=== PATIENT | female | born 1990 | race Caucasian/White ===

== ENCOUNTER 2023-06-17 08:47 | Outpatient (OUT) | payer OTHER, SELFPAY ==
--- NOTE | 2023-06-17 09:00 | XR_ITS ---
The [address] [address] Patient Name: TORITO BENÍTEZ MRN: [facility]:[id number] date: 1990 Sex: F Assigned Patient Location: LAB Current Patient Location: LAB Accession/Order Number: [id number] Exam Date: 06/17/2023 09:15 Report Date: 06/17/2023 19:37 At the request of: KING RAMÍREZ Procedure: XR cervical spine 5V Exam: Radiographs: XR cervical spine 5V Reason for exam: Cervicalgia M54.2, Headache R51.9 Comparison: None XR/XR cervical spine 5V IMPRESSION: No radiographically evident cervical spine fractures or malalignment. Preserved intervertebral disc heights. Remainder of of the cervical spine radiographs is unremarkable. Electronically authenticated by: CHRISTINE MENDEZ Date: 06/17/2023 19:37
[2023-06-17 10:14] LABS: Basophils Percent Auto 0.5 % (0.2-2.0); Eosinophils Absolute Auto 0.1 10^3/uL (0.0-0.7); Eosinophils Percent Auto 1.4 % (0.9-7.0); Hematocrit 38.6 % (36.0-48.0); Hemoglobin 12.6 g/dL (12.0-16.0); Immature Granulocytes Abs Auto 0.01 10^3/uL (0.00-0.03); Immature Granulocytes Pct Auto 0.2 % (0.0-0.5); Lymphocytes Absolute Auto 1.7 10^3/uL (1.2-3.8); Lymphocytes Percent Auto 28.5 % (20.5-60.0); Mean Corpuscular HGB Conc 32.6 g/dL (29.9-35.2); Mean Corpuscular Hemoglobin 27.9 pg (26.7-34.0); Mean Corpuscular Volume 85.6 fL (81.0-99.0); Mean Platelet Volume 10.4 fL (9.5-13.5); Monocytes Absolute Auto 0.4 10^3/uL (0.3-0.8); Monocytes Percent Auto 6.9 % (1.7-12.0); Neutrophils Absolute Auto 3.6 10^3/uL (1.4-6.5); Neutrophils Percent Auto 62.5 % (43.0-75.0); Platelet Count 273 10^3/uL (150-450); Red Blood Count 4.51 10^6/uL (4.20-5.40); White Blood Count 5.8 10^3/uL (4.0-11.0)
[2023-06-17 10:21] LABS: Alanine Aminotransferase 20 U/L (14-59); Albumin Globulin Ratio 0.8; Albumin Level 3.8 g/dL (3.4-5.0); Alkaline Phosphatase 92 U/L (46-116); Anion Gap 12.8; Aspartate Amino Transferase 14 U/L (15-37); Bilirubin Total 0.4 mg/dL (0.2-1.0); Calcium 9.2 mg/dL (8.5-10.1); Carbon Dioxide 27.4 mmol/L (21.0-32.0); Chloride 103 mmol/L (98-107); Estimated GFR (African America >60 (>=60); Estimated GFR (Non-African Ame >60 (>=60); Globulin 4.5 g/dL; Glucose 100 mg/dL (74-106); HDL Cholesterol 43 mg/dL (40-60); Potassium 4.2 mmol/L (3.5-5.1); Sodium 139 mmol/L (136-145); Total Protein 8.3 g/dL (6.4-8.2); Triglycerides 136 mg/dL (<=150); VLDL CHOLESTEROL 27.2 mg/dL
[2023-06-17 10:42] LABS: Cholesterol 228 mg/dL (<=200)
[2023-06-17 14:23] LABS: Chol HDL Ratio 5.3
== END 2023-06-17 08:48 | disposition home or self-care (01) ==
LOC: LAB 08:53
PROVIDERS: PCP Nurse Practitioner Family; Visit Provider Nurse Practitioner Family
DX: Z00.00 Encounter for general adult medical examination without abnormal findings (principal); Z13.228 Encounter for screening for other metabolic disorders; Z13.0 Encounter for screening for diseases of the blood and blood-forming organs and certain disorders involving the immune mechanism; Z13.220 Encounter for screening for lipoid disorders; M54.2 Cervicalgia; R51.9 Headache, unspecified
CPT/HCPCS: 36415; 72050; 80053; 80061; 85025

== ENCOUNTER 2023-12-27 11:43 | Emergency (ER) | payer OTHER, SELFPAY ==
[2023-12-27 11:45] VITALS: BP 167/82; PULSE 71; TEMP 36.7; O2SAT 98
[2023-12-27 11:49] VITALS: O2SAT 98
--- NOTE | 2023-12-27 11:58 | ED.GENADUL1 ---
HPI HPI - General Adult General Chief complaint: Skin/Abscess/Foreign Body Stated complaint: rash Time Seen by Provider: 12/27/23 11:48 Source: patient Mode of arrival: walk-in Limitations: no limitations History of Present Illness HPI narrative: The patient coming to the ER with 3 days history of rash on her upper extremities as well as the face, the patient has been trying Benadryl cream with no effect, she denies any exposure to any new material but she did mention that her significant other also had similar rash that resolved No new environmental changes or any new food or medication Related Data Previous Rx's ?Medication ?Instructions ?Recorded famotidine 20 mg tablet (Pepcid) 20 mg PO BID #10 tabs 12/27/23 prednisone 20 mg tablet 40 mg (2 x 20 mg) PO DAILY 5 days 12/27/23 #10 tabs Allergies Allergy/AdvReac Type Severity Reaction Status Date / Time No Known Drug Allergies Allergy Verified 12/27/23 11:45 Opioid HPI Opioid Management Most Recent Opioid Data: No Data to Display Review of Systems ROS Status of ROS 10 or more systems reviewed and unremarkable except as noted in history and below Exam Narrative Exam Narrative: Nurses notes and vital signs reviewed and patient is not hypoxic. General: Well-appearing and in no apparent distress. Skin: Warm, dry, no pallor noted. No rash. Head: Normocephalic, atraumatic. Neck: Supple, non-tender. Eye: Pupils are equal, round and EOMI. No scleral icterus. Ears, Nose, Mouth, and Throat: TM are clear, no nasal mucosal hypertrophy. Oral mucosa is moist, no posterior oropharynx erythema, uvula is mid-line Cardiovascular: Regular Rate and Rhythm without murmur, gallop or rub. Respiratory: No accessory muscle use or respiratory distress. Lungs are clear to auscultation, no wheezing, rales or rhonchi Chest Wall: no tenderness Back: No midline thoracic or lumbar vertebral tenderness. No CVA tenderness Musculoskeletal: normal ROM, no calf or popliteal tenderness, no lower extremity edema/swelling GI: Abdomen is soft, non-distended. Normal bowel sounds. No masses appreciated. No tenderness to palpation. No rebound, guarding, or rigidity noted. Neurological: A&O x4. No cranial nerve dysfunction observed. No truncal ataxia. Moves all extremities. Sensation intact. Psychiatric: Cooperative and interactive. Normal mood and affect. Skin examination The patient have a maculopapular rash dry on the anterior of the elbow bilaterally in addition to the face and front of the neck, the rash is dry and fine and no signs of infection Constitutional Vital Signs, click to edit/add: Last Vital Signs Temp 98.0 F 12/27/23 11:45 Pulse 71 12/27/23 11:45 Resp 17 12/27/23 11:45 BP 167/82 H 12/27/23 11:45 Pulse Ox 98 12/27/23 11:49 O2 Del Method Room Air 12/27/23 11:49 Course Vital Signs Vital signs: Vital Signs Temperature 98.0 F 12/27/23 11:45 Pulse Rate 71 12/27/23 11:45 Respiratory Rate 17 12/27/23 11:45 Blood Pressure 167/82 H 12/27/23 11:45 Pulse Oximetry 98 12/27/23 11:45 Oxygen Delivery Method Room Air 12/27/23 11:45 Temperature 98.0 F 12/27/23 11:45 Pulse Rate 71 12/27/23 11:45 Respiratory Rate 17 12/27/23 11:45 Blood Pressure 167/82 H 12/27/23 11:45 Pulse Oximetry 98 12/27/23 11:49 Oxygen Delivery Method Room Air 12/27/23 11:49 Medical Decision Making [facility] Narrative Medical decision making narrative: The patient right now is presenting with a possible contact dermatitis with no trigger She will be treated with prednisone as well as Pepcid and she was instructed to use some Benadryl p.o. to help improvement The patient is to follow up with primary care physician in next 2-3 days or to return to the emergency department should any of the signs or symptoms worsen or new symptoms develop. The patient agrees with the following Diagnosis and Treatment plan and the patient will be discharged home. Discharge Plan Discharge Stand Alone Forms: Portal Instructions Chief Complaint: Skin/Abscess/Foreign Body Clinical Impression: Contact dermatitis Qualifiers: Contact dermatitis type: unspecified Contact dermatitis trigger: unspecified trigger Qualified Code(s): L25.9 - Unspecified contact dermatitis, unspecified cause Patient Disposition: Home, Self-Care Time of Disposition Decision: 11:57 Condition: Good Prescriptions / Home Meds: New famotidine [Pepcid] 20 mg tablet 20 mg PO BID Qty: 10 0RF prednisone 20 mg tablet 40 mg PO DAILY 5 Days Qty: 10 0RF Print Language: Macedonian Instructions: Contact Dermatitis (DC) Referrals: KING RAMÍREZ [Primary Care Provider] - 1 week
[2023-12-27] MEDS: PREDNISONE 20 MG TABLET 40 MG PO (12:01)
[2023-12-27] MEDS: FAMOTIDINE 20 MG TABLET PO (12:01)
--- OUTSIDE RECORDS SUMMARY | 2023-12-27 12:05 | XMS_ITS | CCD ---
Author Organization [facility] Care Team Providers Care Psychology Fellow Name Role Phone GENET SNYDER Primary Care Physician [phone] [place] PRE PLANNING ADVISOR - Genet MCGARRY Primary Care Provider GURPREET العراقي Referring Unavailable GENET SNYDER Primary Care Unavailable GURPREET العراقي Referring Unavailable GENET SNYDER Primary Care Unavailable GENET SNYDER Primary Care Unavailable GURPREET العراقي Admitting Unavailable GURPREET العراقي Attending Unavailable Penny Williamson Attending Unavailable Shola Newton Attending Unavailable Ninoska Kirby Attending Unavailable Bucky Owens Attending Unavailable Brigid To Unavailable Allergies Allergy Classification Reported Allergen(s) Allergy Type Date of Onset Reaction(s) Facility (1 source) No Known Medication Allergies; Translations: [No Known Medication Allergies] Propensity to adverse reactions (disorder) [facility] Repository Medications Current Medications Medication Drug Class(es) Dates Sig (Normalized) Sig (Original) amoxicillin 875 mg oral tablet (1 source) Penicillin-class Antibacterial Start: 02-15-2023 End: 02-22-2023 take 1 tablet by mouth twice daily amoxicillin 875 mg Tab 875 mg = 1 tab(s), Oral, BID, X 7 day(s), # 14 tab(s), Refills(s) 0, Pharmacy: [facility]/pharmacy #[id number], 170, cm, 02/15/23 20:06:00 EDT, Height/Length Dosing, 106.6, kg, 02/15/23 20:06:00 EDT, Weight Dosing Start Date: 02/15/23 Stop Date: 02/22/23 Status: Ordered calcium chloride 0.0014 meq/ml / potassium chloride 0.004 meq/ml / sodium chloride 0.103 meq/ml / sodium lactate 0.028 meq/ml injectable solution (1 source) Start: 01-30-2022 lactated ringers infusion cyclobenzaprine hydrochloride 10 mg oral tablet (4 sources) Muscle Relaxant Start: 11-05-2023 take 10 mg by mouth once daily at bedtime Cyclobenzaprine Active 10 MG PO Daily at bedtime November 05, 2023 12:00am Start: 06-17-2023 Cyclobenzaprin e HCl 10 MG 1 tablet as needed Orally Three a day for 30 days Jun, Active Flexeril 10mg 1 Oral 3 times daily Active {21 (Desogestrel 0.15 MG / Ethinyl Estradiol 0.03 MG Oral Tablet) / 7 (Inert Ingredients 1 MG Oral Tablet) } Pack [Isibloom 28 Day] (2 sources) Progestin, Estrogen Start: 12-12-2019 Isibloom 0.15 mg-0.03 mg oral tablet Refill(s) 0 Start Date: 12/12/19 Status: Ordered diphenhydrAMINE hydrochloride 25 mg oral capsule (1 source) Histamine-1 Receptor Antagonist Start: 11-18-2021 End: 11-21-2021 take 1 capsule by mouth three times daily as needed for nausea diphenhydrAMINE 25 mg Cap 25 mg = 1 cap(s), Oral, TID, PRN as needed for nausea/vomiting, X 3 day(s), # 10 cap(s), Refills(s) 0, Pharmacy: [facility], 170, cm, 11/18/21 16:11:00 EDT, Height/Length Dosing, 90, kg, 11/18/21 16:11:00 EDT, Weight Dosing Start Date: 11/18/21 Stop Date: 11/21/21 Status: Ordered Drospirenone-Ethinyl Estradiol (1 source) Progestin, Estrogen Start: 11-05-2023 Drospirenone-Ethinyl Estradiol (Loryna (28)) 3-0.02 mg tablet Active 1 TAB PO Daily November 05, 2023 12:00am escitalopram 10 mg oral tablet (8 sources) Serotonin Reuptake Inhibitor Start: 11-05-2023 take 1 tablet by mouth once daily Escitalopram Oxalate (Lexapro) 10 mg tablet Active 10 MG PO Daily November 05, 2023 12:00am Start: 12-11-2021 take 1 tablet by philip th once daily escitalopram (LEXAPRO) 20 MG tablet Indications: Anxiety , Depression, unspecified depression type Take 1 tablet by mouth daily 30 tablet 5 12/11/2021 Active Start: 12-12-2019 take 1 tablet by philip th once daily escitalopram 10 mg Tab TAKE 1 TABLET BY MOUTH ONCE DAILY Start Date: 12/12/19 Status: Ordered ibuprofen 800 mg oral tablet (1 source) Nonsteroidal Anti-inflammatory Drug Start: 08-26-2022 End: 09-05-2022 take 1 tablet by mouth every eight hours as needed for pain ibuprofen 800 mg Tab 800 mg = 1 tab(s), Oral, q8hr, PRN Pain/Fever, X 10 day(s), # 30 tab(s), Refills(s) 0, Pharmacy: [facility], 169, cm, 08/26/22 11:30:00 EST, Height/Length Dosing, 108.7, kg, 08/26/22 11:30:00 EST, Weight Dosing Start Date: 08/26/22 Stop Date: 09/05/22 Status: Ordered Isibloom 0.15 mg-0.03 mg oral tablet (1 source) Start: 12-12-2019 Isibloom 0.15 mg-0.03 mg oral tablet Refill(s) 0 Start Date: 12/12/19 Status: Ordered Lidocaine 2% Viscous (1 source) Start: 08-26-2022 End: 09-10-2022 Lidocaine 2% Viscous See Instructions, 100 mL, Refill(s) 0, Apply topically with cotton tip applicator to painful area., [facility], 169, cm, 08/26/22 11:30:00 EST, Height/Length Dosing, 108.7, kg, 08/26/22 11:30:00 EST, Weight Dosing Start Date: 08/26/22 Stop Date: 09/10/22 Status: Ordered metoclopramide 10 mg oral tablet (1 source) Dopamine-2 Receptor Antagonist Start: 11-18-2021 End: 11-23-2021 take 1 tablet by mouth four times daily as needed for headache Reglan 10 mg Tab 10 mg = 1 tab(s), Oral, QID, PRN Headache, X 5 day(s), # 20 tab(s), Refills(s) 0, Pharmacy: [facility], 170, cm, 11/18/21 16:11:00 EDT, Height/Length Dosing, 90, kg, 11/18/21 16:11:00 EDT, Weight Dosing Start Date: 11/18/21 Stop Date: 11/23/21 Status: Ordered penicillin v potassium 500 mg oral tablet (1 source) Start: 08-26-2022 End: 09-02-2022 take 1 tablet by mouth every six hours penicillin V potassium 500 mg Tab 500 mg = 1 tab(s), Oral, q6hr, X 7 day(s), # 28 tab(s), Refills(s) 0, Pharmacy: [facility], 169, cm, 08/26/22 11:30:00 EST, Height/Length Dosing, 108.7, kg, 08/26/22 11:30:00 EST, Weight Dosing Start Date: 08/26/22 Stop Date: 09/02/22 Status: Ordered Completed/Discontinued Medications Medication Drug Class(es) Dates Sig (Normalized) Sig (Original) 1 ml ketorolac tromethamine 30 mg/ml cartridge (3 sources) Nonsteroidal Anti-inflammatory Drug, Cyclooxygenase Inhibitor Start: 01-30-2022 End: 01-30-2022 ketorolac (TORADOL) injection 30 mg Start: 11-18-2021 End: 11-23-2021 take 1 tablet by mouth four times daily as needed for pain ketorolac 10 mg Tab 10 mg = 1 tab(s), Oral, QID, PRN for pain, X 5 day(s), # 20 tab(s), Refills(s) 0, Pharmacy: [facility], 170, cm, 11/18/21 16:11:00 EDT, Height/Length Dosing, 90, kg, 11/18/21 16:11:00 EDT, Weight Dosing Start Date: 11/18/21 Stop Date: 11/23/21 Status: Ordered take 1 tablet by philip th every six hours as needed for pain ketorolac (TORADOL) 10 MG tablet Take 10 mg by mouth every 6 hours as needed for Pain 0 Active 1 ml methylergonovine maleate 0.2 mg/ml injection (1 source) Ergot Derivative Start: 01-30-2022 End: 01-30-2022 methylergonovine (METHERGINE) injection 200 mcg Problems Active Problems Problem Classification Problem Date Documented Date Episodic/Chronic Anxiety disorders (7 sources) Anxiety; Translations: [Anxiety disorder, unspecified] 12-12-2019 Chronic Disorders of teeth and jaw (2 sources) Periapical abscess; Translations: [Periapical abscess without sinus] Onset: 08-26-2022 Episodic Essential hypertension (1 source) Essential hypertension; Translations: [Essential (primary) hypertension] Onset: 11-18-2021 Chronic Headache; including migraine (4 sources) Headache; Translations: [Headache, unspecified] Onset: 11-18-2021 Episodic Menstrual disorders (1 source) Secondary amenorrhea; Translations: [Secondary amenorrhea] Chronic Mood disorders (7 sources) Depressive disorder; Translations: [Depression] 12-12-2019 Chronic Other nutritional; endocrine; and metabolic disorders (2 sources) Obese class II; Translations: [Body mass index (BMI) 38.0-38.9, adult] Onset: 08-26-2022 Chronic Other nutritional; endocrine; and metabolic disorders (1 source) Failure to lose weight; Translations: [Other symptoms and signs concerning food and fluid intake] 11-05-2023 Episodic Other nutritional; endocrine; and metabolic disorders (1 source) Other symptoms and signs concerning food and fluid intake; Translations: [Other symptoms concerning nutrition, metabolism, and development] 11-05-2023 Episodic Other and delivery including normal (1 source) Urine test positive; Translations: [Encounter for test, result positive] Episodic Other screening for suspected conditions (not mental disorders or infectious disease) (3 sources) Encounter for screening for other metabolic disorders; Translations: [Encounter for screening for lipoid disorders] Episodic Spondylosis; intervertebral disc disorders; other back problems (1 source) Cervicalgia Episodic Sprains and strains (1 source) Sprain of right ankle; Translations: [Sprain of unspecified ligament of right ankle, initial encounter] Onset: 03-07-2023 Episodic Substance-related disorders (5 sources) Smoker 12-12-2019 Chronic Comment on above: Added secondary to d ocumentation in Social History. Past or Other Problems Problem Classification Problem Date Documented Da te Episodic/Chronic Headache; including migraine (1 source) Headache; including migraine NEGATED: Highlighted row has been ruled out!Unclassified (2 sources) No known active problems 07-23-2018 Results Test Name Value Interpretation Reference Range Facility Ambulatory Visit Summaryon 0 03-07-2023 Ambulatory Visit Summary TORITO BENÍTEZ :1990 Visit Date:03/07/2023 Ambulatory Visit Instructions Your Diagnosis Right ankle sprain BMI 35.0-35.9,adult Your Care Team Attending Physician - Shola Newton PA-C Primary Care Physician - GENET SNYDER CNP This Is Your Medications List Contact prescribing physician if questions or concerns escitalopram (escitalopram 10 mg Tab) Procedures Performed Caesarean section, Extraction of wisdom tooth. Discharge Vitals Temperature (Oral) 36.5 ?C Heart Rate (Peripheral) 75 Blood Pressure 140/86 Height 170 cm Height 67 in Weight 103.5 kg Weight 227.7 lb BMI 35.81 What to do next You Need to Schedule the Following Appointments Follow Up with GENET SNYDER CNP When: Where: [address] [place] [address]- Medications What When Instructions Unchanged escitalopram (escitalopram 10 mg Tab) TAKE 1 TABLET BY MOUTH ONCE DAILY Contact prescribing physician if questions or concerns Medications and Immunizations Administered Not Given SARS-CoV-2 mRNA (tozinameran 5y-11y) vac, Postpone due to refusal Allergies No Known Medication Allergies Problems Ongoing - Any problem that you are currently receiving treatment for. Anxiety Depression Smoker Education Materials BMI for Adults What is BMI? Body mass index (BMI) is a number that is calculated from a person's weight and height. BMI can help estimate how much of a person's weight is composed of fat. BMI does not measure body fat directly. Rather, it is an alternative to procedures that directly measure body fat, which can be difficult and expensive. BMI can help identify people who may be at higher risk for certain medical problems. What are BMI measurements used for? BMI is used as a screening tool to identify possible weight problems. It helps determine whether a person is obese, overweight, a healthy weight, or underweight. BMI is useful for: ? Identifying a weight problem that may be related to a medical condition or may increase the risk for medical problems. ? Promoting changes, such as changes in diet and exercise, to help reach a healthy weight. BMI screening can be repeated to see if these changes are working. How is BMI calculated? BMI involves measuring your weight in relation to your height. Both height and weight are measured, and the BMI is calculated from those numbers. This can be done either in [place] or metric measurements. Note that charts and online BMI calculators are available to help you find your BMI quickly and easily without having to do these calculations yourself. To calculate your BMI in [place] measurements: 1. Measure your weight in pounds (lb). 2. Multiply the number of pounds by 703. ? For example, for a person who weighs 180 lb, multiply that number by 703, which equals 126,540. 3. Measure your height in inches. Then multiply that number by itself to get a measurement called inches squared. ? For example, for a person who is 70 inches tall, the inches squared measurement is 70 inches x 70 inches, which equals 4,900 inches squared. 4. Divide the total from step 2 (number of lb x 703) by the total from step 3 (inches squared): 126,540 ? 4,900 = 25.8. This is your BMI. To calculate your BMI in metric measurements: 1. Measure your weight in kilograms (kg). 2. Measure your height in meters (m). Then multiply that number by itself to get a measurement called meters squared. ? For example, for a person who is 1.75 m tall, the meters squared measurement is 1.75 m x 1.75 m, which is equal to 3.1 meters squared. 3. Divide the number of kilograms (your weight) by the meters squared number. In this example: 70 ? 3.1 = 22.6. This is your BMI. What do the results mean? BMI charts are used to identify whether you are underweight, normal weight, overweight, or obese. The following guidelines will be used: ? Underweight: BMI less than 18.5. ? Normal weight: BMI between 18.5 and 24.9. ? Overweight: BMI between 25 and 29.9. ? Obese: BMI of 30 or above. Keep these notes in mind: ? Weight includes both fat and muscle, so someone with a muscular build, such as an athlete, may have a BMI that is higher than 24.9. In cases like these, BMI is not an accurate measure of body fat. ? To determine if excess body fat is the cause of a BMI of 25 or higher, further assessments may need to be done by a health care provider. ? BMI is usually interpreted in the same way for men and women. Where to find more information For more information about BMI, including tools to quickly calculate your BMI, go to these websites: ? Centers for Disease Control and Prevention: www.cdc.gov ? [place] [employer]: www.heart.org ? National Heart, Lung, and Blood Cameron: www.nhlbi.nih.gov Summary ? Body mass index (BMI) is a number that is calculated from a (more content not included)... Normal [facility] Ambulatory Visit Summary TORITO BENÍTEZ :1990 Visit Date:03/07/2023 Ambulatory Visit Instructions Your Diagnosis Right ankle sprain BMI 35.0-35.9,adult Your Care Team Attending Physician - Shola Newton PA-C Primary Care Physician - GENET SNYDER CNP This Is Your Medications List Contact prescribing physician if questions or concerns escitalopram (escitalopram 10 mg Tab) Procedures Performed Caesarean section, Extraction of wisdom tooth. Discharge Vitals Temperature (Oral) 36.5 ?C Heart Rate (Peripheral) 75 Blood Pressure 140/86 Height 170 cm Height 67 in Weight 103.5 kg Weight 227.7 lb BMI 35.81 What to do next You Need to Schedule the Following Appointments Follow Up with GENET SNYDER CNP When: Where: [address] [place] [address]- Medications What When Instructions Unchanged escitalopram (escitalopram 10 mg Tab) TAKE 1 TABLET BY MOUTH ONCE DAILY Contact prescribing physician if questions or concerns Medications and Immunizations Administered Not Given SARS-CoV-2 mRNA (tozinameran 5y-11y) vac, Postpone due to refusal Allergies No Known Medication Allergies Problems Ongoing - Any problem that you are currently receiving treatment for. Anxiety Depression Smoker Education Materials BMI for Adults What is BMI? Body mass index (BMI) is a number that is calculated from a person's weight and height. BMI can help estimate how much of a person's weight is composed of fat. BMI does not measure body fat directly. Rather, it is an alternative to procedures that directly measure body fat, which can be difficult and expensive. BMI can help identify people who may be at higher risk for certain medical problems. What are BMI measurements used for? BMI is used as a screening tool to identify possible weight problems. It helps determine whether a person is obese, overweight, a healthy weight, or underweight. BMI is useful for: ? Identifying a weight problem that may be related to a medical condition or may increase the risk for medical problems. ? Promoting changes, such as changes in diet and exercise, to help reach a healthy weight. BMI screening can be repeated to see if these changes are working. How is BMI calculated? BMI involves measuring your weight in relation to your height. Both height and weight are measured, and the BMI is calculated from those numbers. This can be done either in [place] or metric measurements. Note that charts and online BMI calculators are available to help you find your BMI quickly and easily without having to do these calculations yourself. To calculate your BMI in [place] measurements: 1. Measure your weight in pounds (lb). 2. Multiply the number of pounds by 703. ? For example, for a person who weighs 180 lb, multiply that number by 703, which equals 126,540. 3. Measure your height in inches. Then multiply that number by itself to get a measurement called inches squared. ? For example, for a person who is 70 inches tall, the inches squared measurement is 70 inches x 70 inches, which equals 4,900 inches squared. 4. Divide the total from step 2 (number of lb x 703) by the total from step 3 (inches squared): 126,540 ? 4,900 = 25.8. This is your BMI. To calculate your BMI in metric measurements: 1. Measure your weight in kilograms (kg). 2. Measure your height in meters (m). Then multiply that number by itself to get a measurement called meters squared. ? For example, for a person who is 1.75 m tall, the meters squared measurement is 1.75 m x 1.75 m, which is equal to 3.1 meters squared. 3. Divide the number of kilograms (your weight) by the meters squared number. In this example: 70 ? 3.1 = 22.6. This is your BMI. What do the results mean? BMI charts are used to identify whether you are underweight, normal weight, overweight, or obese. The following guidelines will be used: ? Underweight: BMI less than 18.5. ? Normal weight: BMI between 18.5 and 24.9. ? Overweight: BMI between 25 and 29.9. ? Obese: BMI of 30 or above. Keep these notes in mind: ? Weight includes both fat and muscle, so someone with a muscular build, such as an athlete, may have a BMI that is higher than 24.9. In cases like these, BMI is not an accurate measure of body fat. ? To determine if excess body fat is the cause of a BMI of 25 or higher, further assessments may need to be done by a health care provider. ? BMI is usually interpreted in the same way for men and women. Where to find more information For more information about BMI, including tools to quickly calculate your BMI, go to these websites: ? Centers for Disease Control and Prevention: www.cdc.gov ? [place] [employer]: www.heart.org ? National Heart, Lung, and Blood [place]: www.nhlbi.nih.gov Summary ? Body mass index (BMI) is a number that is calculated from a (more content not included)... Normal [facility] ED Clinical Summaryon 2022 ED Clinical Summary [address] [address] ED Clinical Summary Person Information Name: TORITO BENÍTEZ [facility] Age: 32 Years : 1990 Sex: Female Language: [place] PCP: GENET SNYDER CNP Marital Status: Phone: [phone] Visit Id: Visit Reason: Ankle pain-swelling; ANKLE PAIN Speciality: Acuity: 4 Enc Type: Emergency Med Service: Emergency Arrival: 03/06/2023 21:01:40 Discharge: 03/07/2023 00:43:45 LOS: 000 03:42 Checkin: 03/06/2023 21:01:40 Checkout: 03/07/2023 00:43:45 Dispo Type: Left Without Being Seen EVENTS: Event Name Event Status Request Date/Time Start Date/Time Complete Date/Time Arrive Complete 03/06/2023 21:01:40 03/06/2023 21:01:40 03/06/2023 21:01:40 Document Home Meds Request 03/06/2023 21:01:40 Triage Complete 03/06/2023 21:01:40 03/06/2023 21:47:31 03/06/2023 21:47:31 Registration Complete 03/06/2023 21:03:47 03/06/2023 21:03:47 03/06/2023 21:03:47 Reg Complete Request 03/06/2023 21:03:47 Reg Bed Request Complete 03/06/2023 21:03:47 03/06/2023 21:03:47 03/06/2023 21:03:47 X-Ray Complete 03/06/2023 21:47:53 03/06/2023 22:01:45 03/06/2023 22:11:59 Wet Read Request 03/06/2023 22:11:59 Discharge Complete 03/07/2023 00:43:58 03/07/2023 00:43:58 03/07/2023 00:43:58 Transfer Complete 03/07/2023 00:43:58 03/07/2023 00:43:58 03/07/2023 00:43:58 ADDRESS: [address] [facility] [id number] [facility] DOC NOTES: MEDICAL INFORMATION: Prescriptions Given: Medications to Continue with No Changes Other Medications desogestrel-ethinyl estradiol (Isibloom 0.15 mg-0.03 mg oral tablet) escitalopram (escitalopram 10 mg Tab) TAKE 1 TABLET BY MOUTH ONCE DAILY. PATIENT EDUCATION INFORMATION: Instructions: Follow up: DIAGNOSIS: Normal [facility] ED Patient Education Noteon 03-07-2023 ED Patient Education Note Normal [facility] ED Patient Summaryon 023 ED Patient Summary [address] [address] Patient Discharge Instructions Person Information Name: TORITO BENÍTEZ Age: 32 Years Arrival Date: 03/06/2023 21:01:40 Discharge Diagnosis: Primary Care Physician: GENET SNYDER CNP Provider Information Primary Provider: Advanced Loan Underwriter:None The exam and treatment you received in the Emergency Department were for an urgent problem and are not intended as complete care. It is important that you follow up with a doctor, nurse practitioner, or physician?s escrow assistant for ongoing care. If your symptoms become worse or you do not improve as expected and you are unable to reach your usual health care provider, you should return to the Emergency Department. We are available 24 hours a day. FORETORITO has been given the following list of patient education materials, prescriptions and follow-up instructions: Follow-up Instructions: In the event that this physician does not participate in your insurance network, please consult with your insurance company to find a nearby participating provider. Patient Education Materials: A MESSAGE TO ALL PATIENTS REGARDING OPIOIDS PRESCRIPTION OPIOIDS: WHAT YOU NEED TO KNOW Prescription opioids can be used to help relieve [id number] pain and are often prescribed following a surgery or injury, or for certain health conditions. These medications can be an important part of the treatment but also come with serious risks. It is important to work with your healthcare provider to make sure you are getting the safest, most effective care. WHAT ARE THE RISKS AND SIDE EFFECTS OF OPIOID USE? Prescription opioids carry serious risks of addiction and overdose, especially with prolonged use. An opioid overdose, often marked by slowed breathing, can cause sudden . The use of prescription opioids can have a number of side effects as well, even when taken as directed: ? Tolerance?meaning you might need to take more of the medication for the same pain relief ? Physical dependence?meaning you have symptoms of withdrawal when a medication is stopped ? Increased sensitivity to pain ? Constipation ? Nausea, vomiting, and dry mouth ? Sleepiness and dizziness ? Confusion ? Depression ? Low levels of testosterone that can result in lower sex drive, energy, and strength ? Itching and sweating RISKS ARE GREATER WITH: ? History of drug misuse, substance use disorder, or overdose ? Mental health conditions (such as depression or anxiety) ? Sleep apnea ? Older age (65 years and older) ? Avoid alcohol while taking prescription opioids. Also, unless specifically advised by your health care provider, medications to avoid include: ? Benzodiazepines (such as Xanax or Valium) ? Muscle relaxants (such as Soma or Flexeril) ? Hypnotics (such as Ambien or Lunesta) ? Other prescription opioids KNOW YOUR OPTIONS Talk to your health care provider about ways to manage your pain that don?t involve prescription opioids. Some of these options may actually work better and have fewer risks and side effects. Options may include: ? Pain relievers such as acetaminophen, ibuprofen, and naproxen ? Some medication that are also used for depression or seizures ? Physical therapy and exercise ? Cognitive behavioral therapy, a psychological, goal-directed approach, in which patients learn how to modify physical, behavioral, and emotional triggers of pain and stress. IF YOU ARE PRESCRIBED OPIOIDS FOR PAIN: ? Never take opioids in greater amounts or more often than prescribed. ? Follow up with your primary health care provider. o Work together to create a plan on how to manage your pain. o Talk about ways to help manage your pain that don?t involve prescription opioids. o Talk about any and all concerns and side effects. ? Help prevent misuse and abuse o Never sell or share prescription opioids. o Never use another person?s prescription opioids. ? Store prescription opioids in a secure place and out of reach of others (this may include visitors, children, friends, and family). ? Safely dispose of unused prescription opioids: Find your community drug take-back program or your pharmacy mail-back program, or flush them down the toilet, following guidance from the Food and Drug Administration (www.fda.gov/Drugs/Re sourcesForYou). ? Visit www.cdc.gov/drugoverd ose to learn about the risks of opioids abuse and overdose. ? If you believe you may be struggling with addiction, tell your health career services coordinator and ask for guidance or call [facility] National Helpline at 5-399-472-KAXG. v Source: [place] Department of Health and Human Services/Center for Disease Control & Prevention [facility] Medications Given: Medication Dose Route No medications found. Medication Information: Medication (more content not included)... Normal [facility] Family Medicine Office/Abraham c Melissaon 03-07-2023 Family Medicine Office/Clinic Note Chief Complaint EST ankle sprain HPI Staff Torito is a 32 year old female here for an ankle sprain right ankle yesterday stepped off a step onto a hot wheel car lateral and anterior swelling ankle feels loose using ice worse when weight bearing pt was in the er last night and had xrays done, left before being seen by the doctor History of Present Illness I have reviewed and verified the staff HPI to be accurate for this encounter. Portions of this record have been created with voice recognition software. Occasional wrong-word or ?eitpd-u-xgoc? substitutions may have occurred due to the inherent limitations of voice recognition software. 32-year-old female presents today for possible ankle sprain. Patient states she was seen in the emergency department yesterday states she did receive an x-ray but states the wait was so long she did not wait for her results. Patient states that she noted right ankle sprain which started yesterday after stepping on a hot wheel car. She states the lateral and anterior swelling she states that her ankle feels loose. She has been using ice and elevating it. States pain is worse with weightbearing better with resting. She denies any weakness numbness or tingling of the lower extremities. She has no other concerns at this time. Patient notes that she is leaving on Thursday morning for [place] with her family. States she will be in the airport someone to make sure she had good support as she will be walking. Review of Systems PHQ Score Initial Depression Screen Score: 0 ROS negative unless otherwise stated in HPI. Physical Exam Vitals & Measurements T: 36.5 ?C(Oral) HR: 75(Peripheral) BP: 140/86 SpO2: 98% HT: 67 in HT: 170 cm WT: 103.5 kg WT: 227.7 lb BMI: 35.81 General: Well developed, well nourished, in no acute distress Eyes: not assessed Ears: not assessed Nose: not addressed Mouth: not assessed Neck: not assessed Lungs: clear to auscultation throughout, no wheezing, no rales. No respiratory distress Cardio: regular rate and rhythm, no murmur Abdomen: not assessed Musculoskeletal: No deformity or scoliosis noted. Normal range of motion. Joints normal. No erythema, edema, effusion, or ecchymosis Extremity: Patient has a slight limp on the right ankle. Otherwise normal range of motion of all 4 extremities patient walked back into convenient care on her own. Patient has strong radial and pedal pulses with brisk capillary refill bilaterally. There is swelling or edema at the right lateral malleolus not at the right medial malleolus. No obvious bruising lacerations abrasions or lesions. Patient is able to dorsiflex and plantarflex the right foot but states when she flexes the right foot she has pain and discomfort. She states with movement or weightbearing sometimes she has pain that radiates up the right lateral portion of her leg. She denies any falls trauma or other injuries. No obvious deformities or crepitus. She does have tenderness at the right medial malleolus however no underlying deformities or crepitus. No focal deficits. Patient is neurovascularly intact. Neurologic: not assessed Skin: No rashes, ulcerations, or suspicious lesions Mental Status: Alert and oriented x3. Normal mood and affect Assessment/Plan 1. Right ankle sprain (S93.401A: Sprain of unspecified ligament of right ankle, initial encounter) Please follow-up with your primary care provider in 3 to 5 days. Contact their office on Thursday morning to schedule a follow-up appointment. You were seen and evaluated regards to right ankle pain and swelling. Review of your x-ray images from the emergency department yesterday are negative for any fractures or dislocations. You were treated for a right ankle sprain with an Golden wrap and air splint. You may wear both the Golden wrap and air splint and a good supportive tennis shoe. Continue to rest ice and elevate as needed for pain and swelling Tylenol or ibuprofen as needed for pain. You may return for any worsening or concerning symptoms. If no improvement x1 week of rest ice and elevation follow closely with primary care provider as he may need referral to orthopedics. 2. BMI 35.0-35.9,adult (Z68.35: Body mass index [BMI] 35.0-35.9, adult) The standard range for ages 18 and older is >=18.5 and < 25 kg/m2. Your BMI today was above this range, this falls in the overweight to obese category and there are medical benefits to weight loss. We can offer counselling, referral, and/or medical support in addressing this problem. Your BMI and weight management will be followed at subsequent visits. Follow-up With When Contact Information GENET SNYDER CNP [address] [place] [address]- Additional Instructions: Patient Education BMI for Adults Ankle Sprain, Cttr-zp-Mlml Problem List/Past Medical History Ongoing Anxiety Depression Smoker Historical No qualifying data Procedure/Surgical History Caesarean section, Extraction of wisdom tooth. Medications escit (more content not included)... Normal [facility] Comment on above: Result Comment: Elec tronically Signed By: Aman WHITNEY, Shola Whitley\.br\Date and Time Signed: 03/07/23 10:43 EDT Patient Educationon 03-07-20 Patient Education Nutrition BMI for Adults What is BMI? Body mass index (BMI) is a number that is calculated from a person's weight and height. BMI can help estimate how much of a person's weight is composed of fat. BMI does not measure body fat directly. Rather, it is an alternative to procedures that directly measure body fat, which can be difficult and expensive. BMI can help identify people who may be at higher risk for certain medical problems. What are BMI measurements used for? BMI is used as a screening tool to identify possible weight problems. It helps determine whether a person is obese, overweight, a healthy weight, or underweight. BMI is useful for: ? Identifying a weight problem that may be related to a medical condition or may increase the risk for medical problems. ? Promoting changes, such as changes in diet and exercise, to help reach a healthy weight. BMI screening can be repeated to see if these changes are working. How is BMI calculated? BMI involves measuring your weight in relation to your height. Both height and weight are measured, and the BMI is calculated from those numbers. This can be done either in [place] ([place] or metric measurements. Note that charts and online BMI calculators are available to help you find your BMI quickly and easily without having to do these calculations yourself. To calculate your BMI in [place] measurements: 1. Measure your weight in pounds (lb). 2. Multiply the number of pounds by 703. ? For example, for a person who weighs 180 lb, multiply that number by 703, which equals 126,540. 3. Measure your height in inches. Then multiply that number by itself to get a measurement called inches squared. ? For example, for a person who is 70 inches tall, the inches squared measurement is 70 inches x 70 inches, which equals 4,900 inches squared. 4. Divide the total from step 2 (number of lb x 703) by the total from step 3 (inches squared): 126,540 ? 4,900 = 25.8. This is your BMI. To calculate your BMI in metric measurements: 1. Measure your weight in kilograms (kg). 2. Measure your height in meters (m). Then multiply that number by itself to get a measurement called meters squared. ? For example, for a person who is 1.75 m tall, the meters squared measurement is 1.75 m x 1.75 m, which is equal to 3.1 meters squared. 3. Divide the number of kilograms (your weight) by the meters squared number. In this example: 70 ? 3.1 = 22.6. This is your BMI. What do the results mean? BMI charts are used to identify whether you are underweight, normal weight, overweight, or obese. The following guidelines will be used: ? Underweight: BMI less than 18.5. ? Normal weight: BMI between 18.5 and 24.9. ? Overweight: BMI between 25 and 29.9. ? Obese: BMI of 30 or above. Keep these notes in mind: ? Weight includes both fat and muscle, so someone with a muscular build, such as an athlete, may have a BMI that is higher than 24.9. In cases like these, BMI is not an accurate measure of body fat. ? To determine if excess body fat is the cause of a BMI of 25 or higher, further assessments may need to be done by a health care provider. ? BMI is usually interpreted in the same way for men and women. Where to find more information For more information about BMI, including tools to quickly calculate your BMI, go to these websites: ? Centers for Disease Control and Prevention: www.cdc.gov ? [place] [employer]: www.heart.org ? National Heart, Lung, and Blood [place]: www.nhlbi.nih.gov Summary ? Body mass index (BMI) is a number that is calculated from a person's weight and height. ? BMI may help estimate how much of a person's weight is composed of fat. BMI can help identify those who may be at higher risk for certain medical problems. ? BMI can be measured using [place] measurements or metric measurements. ? BMI charts are used to identify whether you are underweight, normal weight, overweight, or obese. This information is not intended to replace advice given to you by your health care provider. Make sure you discuss any questions you have with your health care provider. Document Revised: 04/11/2020 Document Reviewed: 02/17/2020 [employer] Patient Education ? 2022 [employer]. Orthopedics Ankle Sprain An ankle sprain is a stretch or tear in one of the tough tissues (ligaments) that connect the bones in your ankle. An ankle sprain can happen when the ankle rolls outward (inversion sprain) or inward (eversion sprain). What are the causes? This condition is caused by rolling or twisting the ankle. What increases the risk? You are more likely to develop this condition if you play sports. What are the signs or symptoms? Symptoms of this condition include: ? Pain in your ankle. ? Swelling. ? Bruising. This may happen right after you sprain your ankle or 1?2 days later. ? Trouble standing or walking. How is (more content not included)... Normal [facility] Prescriptions/Work Noteson 0 03-07-2023 Prescriptions/Work Notes [id number]# 1.00CD:127 Normal [facility] XR Ankle 3+ Views Righton XR Ankle 3+ Views Right Exam Date/Time: 03/06/2023 22:11 EDT Reason for Exam: Fall Report IMPRESSION: There is soft tissue swelling over the lateral malleolus which may indicate a soft tissue, ligamentous injury. CLINICAL HISTORY: Fall COMPARISON: None available. FINDINGS: AP, lateral and oblique views of the right ankle demonstrates no fracture, dislocation or other bone abnormality. There is soft tissue swelling over the lateral malleolus which may indicate a soft tissue, ligamentous injury. Ordering Provider: Penny Williamson FINAL REPORT Dictated: 03/07/2023 7:20 am Matheus Titus MD, V. Signed (Electronic Signature): 03/07/2023 7:20 am Signed by: Matheus Titus MD, V. Transcribed by: HERBERT Technologist: MANPREET Technical Comments Radiation Dose: Kar in mGy = na DAP = na Normal [facility] Consent for Treatmenton Consent for Treatment [id number] .00CD:127 Normal [facility] Discharge Instructionson Discharge Instructions [id number]. 00CD:127 Normal [facility] ED Clinical Summaryon 2022 ED Clinical Summary [place] [id number] ED Clinical Summary Person Information Name: TORITO BENÍTEZ [place] Age: 32 Years : 1990 Sex: Female Language: [place] PCP: GENET SNYDER CNP Marital Status: Phone: [phone] Visit Id: Visit Reason: Ear pain; Dental pain; TOOTH PAIN, EAR PAIN Speciality: Acuity: 4 Enc Type: Emergency Med Service: Emergency Arrival: 02/15/2023 18:48:45 Discharge: 02/15/2023 22:01:40 LOS: 000 03:13 Checkin: 02/15/2023 18:48:45 Checkout: 02/15/2023 22:01:40 Dispo Type: Home (Routine DC) EVENTS: Event Name Event Status Request Date/Time Start Date/Time Complete Date/Time Arrive Complete 02/15/2023 18:48:45 02/15/2023 18:48:45 02/15/2023 18:48:45 Document Home Meds Request 02/15/2023 18:48:45 Triage Complete 02/15/2023 18:48:45 02/15/2023 20:06:41 02/15/2023 20:06:41 Registration Complete 02/15/2023 18:52:47 02/15/2023 18:52:47 02/15/2023 18:52:47 Reg Complete Request 02/15/2023 18:52:47 Reg Bed Request Complete 02/15/2023 18:52:47 02/15/2023 18:52:47 02/15/2023 18:52:47 Bed Assign Complete 02/15/2023 20:59:07 02/15/2023 20:59:07 02/15/2023 20:59:07 Dr Exam Complete 02/15/2023 20:59:07 02/15/2023 21:09:48 02/15/2023 21:09:48 RN Exam Complete 02/15/2023 20:59:07 02/15/2023 22:00:47 02/15/2023 22:00:47 Registration Request 02/15/2023 21:09:48 Meds Admin Request 02/15/2023 21:36:26 Discharge Complete 02/15/2023 21:37:29 02/15/2023 22:01:44 02/15/2023 22:01:44 Transfer Complete 02/15/2023 22:01:44 02/15/2023 22:01:44 02/15/2023 22:01:44 ADDRESS: [address] [facility] [id number] PHYS DOC NOTES: MEDICAL INFORMATION: Prescriptions Given: New Medications [id number], [address] [place] [place] [place] [id number], [phone] amoxicillin (amoxicillin 875 mg Tab) 1 Tablets By Mouth 2 times a day for 7 Days. Refills: 0. Medications to Continue with No Changes Other Medications desogestrel-ethinyl estradiol (Isibloom 0.15 mg-0.03 mg oral tablet) escitalopram (escitalopram 10 mg Tab) TAKE 1 TABLET BY MOUTH ONCE DAILY. PATIENT EDUCATION INFORMATION: Instructions: Dental Pain Follow up: With: Address: When: GENET DAVISACH [address] [place] [phone] Business (1) In 3 days DIAGNOSIS: Pain, dental Normal [facility] ED Patient Education Noteon 02-16-2023 ED Patient Education Note Dentistry Dental Pain Dental pain is often a sign that something is wrong with your teeth or gums. It is also something that can occur following dental treatment. If you have dental pain, it is important to contact your dental care provider, especially if the cause of the pain has not been determined. Dental pain may be of varying intensity and can be caused by many things, including: ? Tooth decay (cavities or caries). Cavities are caused by bacteria that produce acids that irritate the nerve of your tooth, making it sensitive to air and hot or cold temperatures. This eventually causes discomfort or pain. ? Abscess or infection. Once the bacteria reach the inner part of the tooth (pulp), a bacterial infection (dental abscess) can occur. Pus typically collects at the end of the root of a tooth. ? Injury. ? A crack in the tooth. ? Gum recession exposing the root, and possibly the nerves, of a tooth. ? Gum (periodontal)disease. ? Abnormal grinding or clenching. ? Poor or improper home care. ? An unknown reason (idiopathic). Your pain may be mild or severe. It may occur when you are: ? Chewing. ? Exposed to hot or cold temperatures. ? Eating or drinking sugary foods or beverages, such as soda or candy. Your pain may be constant, or it may come and go without cause. Follow these instructions at home: The following actions may help to lessen any discomfort that you are feeling before or after getting dental care. Medicines ? Take ntyp-ney-jyypnlg and prescription medicines only as told by your dental care provider. ? If you were prescribed an antibiotic medicine, take it as told by your dental care provider. Do not stop taking the antibiotic even if you start to feel better. Eating and drinking Avoid foods or drinks that cause you pain, such as: ? Very hot or very cold foods or drinks. ? Sweet or sugary foods or drinks. Managing pain and swelling ? Ice can sometimes be used to reduce pain and swelling, especially if the pain is following dental treatment. ? If directed, put ice on the painful area of your face. To do this: ? Put ice in a plastic bag. ? Place a towel between your skin and the bag. ? Leave the ice on for 20 minutes, 2?3 times a day. ? Remove the ice if your skin turns bright red. This is very important. If you cannot feel pain, heat, or cold, you have a greater risk of damage to the area. Brushing your teeth ? To keep your mouth and gums healthy, brush your teeth twice a day using a fluoride toothpaste. ? Use a toothpaste made for sensitive teeth as directed by your dental care provider, especially if the root is exposed. ? Always brush your teeth with a soft-bristled toothbrush. This will help prevent irritation to your gums. General instructions ? Floss at least once a day. ? Do not apply heat to the outside of the face. ? Gargle with a mixture of salt and water 3?4 times a day or as needed. To make salt water, completely dissolve ??1 tsp (3?6 g) of salt in 1 cup (237 mL) of warm water. ? Keep all follow-up visits. This is important. Contact a dental care provider if: ? You have any unexplained dental pain. ? Your pain is not controlled with medicines. ? Your symptoms get worse. ? You have new symptoms. Get help right away if: ? You are unable to open your mouth. ? You are having trouble breathing or swallowing. ? You have a fever. ? You notice that your face, neck, or jaw is swollen. These symptoms may represent a serious problem that is an emergency. Do not wait to see if the symptoms will go away. Get medical help right away. Call your local emergency services (911 in the [place] Do not drive yourself to the hospital. Summary ? Dental pain may be caused by many things, including tooth decay and infection. ? Your pain may be mild or severe. ? Take onnr-qun-qjugmgd and prescription medicines only as told by your dental care provider. ? Watch your dental pain for any changes. Let your dental care provider know if your symptoms get worse. This information is not intended to replace advice given to you by your health care provider. Make sure you discuss any questions you have with your health care provider. Document Revised: 04/24/2021 Document Reviewed: 04/24/2021 [email or web address] Patient Education ? 2022 [employer] Normal [facility] ED Patient Summaryon 023 ED Patient Summary [address] [address] Patient Discharge Instructions Person Information Name: TORITO BENÍTEZ Age: 32 Years Arrival Date: 02/15/2023 18:48:45 Discharge Diagnosis: Pain, dental Primary Care Physician: GENET SNYDER CNP Provider Information Primary Provider: Ellis Jean DO Advanced Loan Underwriter:None The exam and treatment you received in the Emergency Department were for an urgent problem and are not intended as complete care. It is important that you follow up with a doctor, nurse practitioner, or physician?s escrow assistant for ongoing care. If your symptoms become worse or you do not improve as expected and you are unable to reach your usual health care provider, you should return to the Emergency Department. We are available 24 hours a day. FORE, TORITO Alberto has been given the following list of patient education materials, prescriptions and follow-up instructions: Follow-up Instructions: With: Address: When: GENET SNYDER [address] [place] [phone] Business (1) In 3 days In the event that this physician does not participate in your insurance network, please consult with your insurance company to find a nearby participating provider. Patient Education Materials: Dental Pain A MESSAGE TO ALL PATIENTS REGARDING OPIOIDS PRESCRIPTION OPIOIDS: WHAT YOU NEED TO KNOW Prescription opioids can be used to help relieve yuhbzauc-bt-dawtuf pain and are often prescribed following a surgery or injury, or for certain health conditions. These medications can be an important part of the treatment but also come with serious risks. It is important to work with your healthcare provider to make sure you are getting the safest, most effective care. WHAT ARE THE RISKS AND SIDE EFFECTS OF OPIOID USE? Prescription opioids carry serious risks of addiction and overdose, especially with prolonged use. An opioid overdose, often marked by slowed breathing, can cause sudden . The use of prescription opioids can have a number of side effects as well, even when taken as directed: ? Tolerance?meaning you might need to take more of the medication for the same pain relief ? Physical dependence?meaning you have symptoms of withdrawal when a medication is stopped ? Increased sensitivity to pain ? Constipation ? Nausea, vomiting, and dry mouth ? Sleepiness and dizziness ? Confusion ? Depression ? Low levels of testosterone that can result in lower sex drive, energy, and strength ? Itching and sweating RISKS ARE GREATER WITH: ? History of drug misuse, substance use disorder, or overdose ? Mental health conditions (such as depression or anxiety) ? Sleep apnea ? Older age (65 years and older) ? Avoid alcohol while taking prescription opioids. Also, unless specifically advised by your health care provider, medications to avoid include: ? Benzodiazepines (such as Xanax or Valium) ? Muscle relaxants (such as Soma or Flexeril) ? Hypnotics (such as Ambien or Lunesta) ? Other prescription opioids KNOW YOUR OPTIONS Talk to your health care provider about ways to manage your pain that don?t involve prescription opioids. Some of these options may actually work better and have fewer risks and side effects. Options may include: ? Pain relievers such as acetaminophen, ibuprofen, and naproxen ? Some medication that are also used for depression or seizures ? Physical therapy and exercise ? Cognitive behavioral therapy, a psychological, goal-directed approach, in which patients learn how to modify physical, behavioral, and emotional triggers of pain and stress. IF YOU ARE PRESCRIBED OPIOIDS FOR PAIN: ? Never take opioids in greater amounts or more often than prescribed. ? Follow up with your primary health care provider. o Work together to create a plan on how to manage your pain. o Talk about ways to help manage your pain that don?t involve prescription opioids. o Talk about any and all concerns and side effects. ? Help prevent misuse and abuse o Never sell or share prescription opioids. o Never use another person?s prescription opioids. ? Store prescription opioids in a secure place and out of reach of others (this may include visitors, children, friends, and family). ? Safely dispose of unused prescription opioids: Find your community drug take-back program or your pharmacy mail-back program, or flush them down the toilet, following guidance from the Food and Drug Administration (www.fda.gov/Drugs/Re sourcesForYou). ? Visit www.cdc.gov/drugoverd ose to learn about the risks of opioids abuse and overdose. ? If you believe you may be struggling with addiction, tell your health career services coordinator and ask for guidance or call [facility] National Helpline at 0-707-842-GQIR. v Source: [place] Department of Health and Human Services/Center for Disease C (more content not included)... Normal [facility] Consent for Treatmenton 01-31 Consent for Treatment [phone] [facility] [id number] [facility] ED Note-Physicianon 02-16-20 23 ED Note-Physician Basic Information Time Seen: Ellis Jean DO 02/15/2023 21:09 Chief Complaint pt. c/o R dental pain and R ear pain worsening x 2 days. finished antibiotics and dental pain returned. denies fever/chills/vomiting . History of Present Illness HPI: Is a 32-year-old female past ministry of anxiety depression who presents ED for right upper dental pain. Patient states that she has had problems with this tooth and there is a temporary filling on it currently. She is scheduled to have an extraction done on Thursday but states for the past 2 days she is having worsening pain in this area and is starting to radiate to his right ear. She denies any nausea or vomiting. She denies any fevers or chills. She denies any problems breathing or swallowing. She is tried sacc-fwh-ihmmpgw ibuprofen as well as acetaminophen with minimal relief. ROS: Pertinent review of systems conducted and is negative except as noted above. Physical exam: General: nontoxic appearing and in no distress HEENT: Full dentition throughout. There is a temporary filling on a right upper molar. No surrounding erythema. No drainable abscess. Posterior pharynx is patent. Neuro: awake and alert Neck: supple, trachea midline Card: Heart regular rate and rhythm no murmur Resp: Lungs clear to auscultation no wheeze or rhonchi Physical Exam Vitals & Measurements T: 36.5 ?C(Oral) HR: 68(Peripheral) RR: 18 BP: 190/108 SpO2: 99% HT: 170 cm WT: 106.6 kg BMI: 36.89 Medical Decision Making MEDICAL DECISION MAKING Number and Complexity of Problems Differential Diagnosis: [] [facility] Data External documents reviewed: N/A My EKG interpretation: Noted in chart if applicable My CT interpretation: N/A My X-ray interpretation: Noted in chart if applicable My Ultrasound interpretation: N/A Decision rules/scores evaluated: N/A Discussed with: N/A Treatment and Disposition ED Course: Patient with worsening dental pain. She has an appointment on Thursday to have an extraction. We will start on a course of amoxicillin to prevent infection here in the ED. We will give her numbing cotton balls with benzocaine and lidocaine. We will also give her a one-time dose of Percocet tonight to get her through tonight. Shared decision making: As above Code status: N/A Assessment/Plan Pain, dental (K08.89: Other specified disorders of teeth and supporting structures) Orders: acetaminophen-oxycodo ne, 1 tab(s), Tab, Oral, Once, Stop date 02/15/23 21:35:00 EDT, STAT, Start date 02/15/23 21:35:00 EDT amoxicillin, 875 mg = 1 tab(s), Tab, Oral, Once, Stop date 02/15/23 21:36:00 EDT, STAT, Start date 02/15/23 21:36:00 EDT, 02/15/23 21:36:00 EDT amoxicillin, 875 mg = 1 tab(s), Oral, BID, X 7 day(s), # 14 tab(s), Refills(s) 0, Pharmacy: [facility]/pharmacy #[id number], 170, cm, 02/15/23 20:06:00 EDT, Height/Length Dosing, 106.6, kg, 02/15/23 20:06:00 EDT, Weight Dosing benzocaine topical, 1 denny, Gel, Topical, QID for 30 day(s), Stop date 03/17/23 21:35:00 EDT, STAT, Start date 02/15/23 21:36:00 EDT Disposition Plan Discharge Prescription List Prescriptions amoxicillin 875 mg Tab, 875 mg= 1 tab(s), Oral, BID Follow-up With When Contact Information GENET SNYDER In 3 days [address] [facility] [address] [place] [address]- [phone] Business (1) Additional Instructions: Patient Education Dental Pain Problem List/Past Medical History Ongoing Anxiety Depression Smoker Historical No qualifying data Procedure/Surgical History Caesarean section, Extraction of wisdom tooth. Medications Inpatient acetaminophen-oxycodo ne 325 mg-5 mg Tab, 1 tab(s), Oral, Once amoxicillin 875 mg Tab, 875 mg= 1 tab(s), Oral, Once benzocaine topical 20% gel, 1 denny, Topical, QID Home amoxicillin 875 mg Tab, 875 mg= 1 tab(s), Oral, BID escitalopram 10 mg Tab Isibloom 0.15 mg-0.03 mg oral tablet Allergies No Known Medication Allergies Social History Alcohol - Low Risk, 09/21/2019 Current, 09/21/2019 Current, Beer, 1-2 times per year, Alcohol use interferes with work or home: No. Drinks more than intended: No. Others hurt by drinking: No. Ready to change: No. Household alcohol concerns: No., 05/24/2018 Substance Abuse - Denies Substance Abuse, 05/24/2018 Current, 09/21/2019 Tobacco Never (less than 100 in lifetime), Former smoker, quit more than 30 days ago Tobacco Use:. Cigarettes, 08/26/2022 Smoker, current status unknown Tobacco Use:. Never Smokeless Tobacco Use:. Cigarettes, Yes, 12/12/2019 Family History Family history is negative Lab Results No qualifying data available. Diagnostic Results No qualifying data available. Normal [facility] Comment on above: Result Comment: Elec tronically Signed By: Ellis Jean DO\.br\Date and Time Signed: 02/15/23 21:38 EDT Family Medicine Office/Clini c Noteon 08-26-2022 Family Medicine Office/Clinic Note Chief Complaint EST tooth pain HPI Staff 32 year old female presents with tooth pain Onset: 3 days ago with the pain dentist cant get her in till next Thursday Location: right side a cracked tooth from a long time ago and one she neglected states she is not sleeping bc the pain of her teeth are hurting her ear and lymph nodes radiates to right ear Fevers: not sure temperature sensitive - yes History of dental problems: yes Routine Dental Care: no not until the Sep 3 Treatments tried over the counter: ibuprofen Tylenol - minimal improvement History of Present Illness I have reviewed and verified the staff HPI to be accurate for this encounter. Review of Systems PHQ Score Initial Depression Screen Score: 0 Physical Exam Vitals & Measurements T: 37.2 ?C(Oral) HR: 73(Peripheral) BP: 138/82 SpO2: 97% HT: 67 in HT: 169 cm WT: 108.7 kg WT: 239.14 lb BMI: 38.06 General: _ Pleasant, obese female in no acute distress. Ears: No deformity or lesion of external ear. Canals and TM appear normal bilaterally. TM?s intact, not inflamed, with normal light reflex. Hearing grossly normal to conversational speech Nose: mild nasal mucosa inflammation and edema Mouth: _ Mucous membranes moist, tongue normal. Overall poor dentition noted. Significant decay noted at the base of the right lower first and second molars. Mild erythema of the surrounding gingival tissue, moderate edema. Pain on palpation of the area. No open area or drainage noted at this time Neck: palpable anterior cervical node R side Lungs: Normal respiratory effort and clear to auscultation Cardio: regular rate and rhythm, no murmur Mental Status: Alert and oriented x3. Normal mood and affect Assessment/Plan 1. Dental infection (K04.7: Periapical abscess without sinus) Will treat with PCN VK given signs of infection. Finish antibiotic course. May alternate Tylenol and ibuprofen for pain. Will Rx viscous lidocaine to be applied topically to the painful area. Discussed importance of follow up with dentist TAMMI for proper treatment- pain and/or infection will continue or reoccur until properly treated. ER if any significantly worsening pain, high fever, or rapidly spreading erythema, edema, warmth to face. Patient verbalized understanding of treatment plan. Ordered: ibuprofen, 800 mg = 1 tab(s), Oral, q8hr, PRN Pain/Fever, X 10 day(s), # 30 tab(s), Refills(s) 0, Pharmacy: [facility], 169, cm, 08/26/22 11:30:00 EST, Height/Length Dosing, 108.7, kg, 08/26/22 11:30:00 EST, Weight Dosing lidocaine topical, See Instructions, 100 mL, Refill(s) 0, Apply topically with cotton tip applicator to painful area., [facility], 169, cm, 08/26/22 11:30:00 EST, Height/Length Dosing, 108.7, kg, 08/26/22 11:30:00 EST, Weight Dosing penicillin V potassium, 500 mg = 1 tab(s), Oral, q6hr, X 7 day(s), # 28 tab(s), Refills(s) 0, Pharmacy: [facility], 169, cm, 08/26/22 11:30:00 EST, Height/Length Dosing, 108.7, kg, 08/26/22 11:30:00 EST, Weight Dosing 2. BMI 38.0-38.9,adult (Z68.38: Body mass index [BMI] 38.0-38.9, adult) The standard range for ages 18 and older is >=18.5 and < 25 kg/m2. Your BMI today was above this range, this falls in the overweight to obese category and there are medical benefits to weight loss. We can offer counselling, referral, and/or medical support in addressing this problem. Your BMI and weight management will be followed at subsequent visits. Ordered: Body Mass Index (BMI) documented 3008F Follow-up With When Contact Information GENET SNYDER CNP [address] [place] [address]- Additional Instructions: Patient Education Dental Abscess BMI for Adults Problem List/Past Medical History Ongoing Anxiety Depression Smoker Historical No qualifying data Procedure/Surgical History Caesarean section, Extraction of wisdom tooth. Medications escitalopram 10 mg Tab ibuprofen 800 mg Tab, 800 mg= 1 tab(s), Oral, q8hr, PRN Isibloom 0.15 mg-0.03 mg oral tablet Lidocaine 2% Viscous, See Instructions penicillin V potassium 500 mg Tab, 500 mg= 1 tab(s), Oral, q6hr Allergies No Known Medication Allergies Social History Alcohol - Low Risk, 09/21/2019 Current, 09/21/2019 Current, Beer, 1-2 times per year, Alcohol use interferes with work or home: No. Drinks more than intended: No. Others hurt by drinking: No. Ready to change: No. Household alcohol concerns: No., 05/24/2018 Substance Abuse - Denies Substance Abuse, 05/24/2018 Current, 09/21/2019 Tobacco Never (less than 100 in lifetime), Former smoker, quit more than 30 days ago Tobacco Use:. Cigarettes, 08/26/2022 Smoker, current status unknown Tobacco Use:. Never Smokeless Tobacco Use:. Cigarettes, Yes, 12/12/2019 Family History Family history is negative Immunizations Vaccine Date Status Comments influenza virus vaccine, inactivated - Not Given Postpone due to refusal SARS-CoV-2 mRNA (donten 5y-11y) vac - Not Given Postpone due to refusal [facility] Comment on above: Result Comment: Elec tronically Signed By: SABINO Kirby APRN, [place]\.br\Date and Time Signed: 08/26/22 11:45 EST Patient Educationon 08-26-19 Patient Education Dentistry Dental Abscess A dental abscess is a collection of pus in or around a tooth that results from an infection. An abscess can cause pain in the affected area as well as other symptoms. Treatment is important to help with symptoms and to prevent the infection from spreading. What are the causes? This condition is caused by a bacterial infection around the root of the tooth that involves the inner part of the tooth (pulp). It may result from: ? Severe tooth decay. ? Trauma to the tooth, such as a broken or chipped tooth, that allows bacteria to enter into the pulp. ? Severe gum disease around a tooth. What increases the risk? This condition is more likely to develop in males. It is also more likely to develop in people who: ? Have dental decay (cavities). ? Eat sugary snacks between meals. ? Use tobacco products. ? Have diabetes. ? Have a weakened disease-fighting system (immune system). ? Do not brush and care for their teeth regularly. What are the signs or symptoms? Symptoms of this condition include: ? Severe pain in and around the infected tooth. ? Swelling and redness around the infected tooth, in the mouth, or in the face. ? Tenderness. ? Pus drainage. ? Bad breath. ? Bitter taste in the mouth. ? Difficulty swallowing. ? Difficulty opening the mouth. ? Nausea. ? Vomiting. ? Chills. ? Swollen neck glands. ? Fever. How is this diagnosed? This condition is diagnosed based on: ? Your symptoms and your medical and dental history. ? An examination of the infected tooth. During the exam, your dentist may tap on the infected tooth. You may also have X-rays of the affected area. How is this treated? This condition is treated by getting rid of the infection. This may be done with: ? Incision and drainage. This procedure is done by making an incision in the abscess to drain out the pus. Removing pus is the first priority in treating an abscess. ? Antibiotic medicines. These may be used in certain situations. ? Antibacterial mouth rinse. ? A root canal. This may be performed to save the tooth. Your dentist accesses the visible part of your tooth (crown) with a drill and removes any damaged pulp. Then the space is filled and sealed off. ? Tooth extraction. The tooth is pulled out if it cannot be saved by other treatment. You may also receive treatment for pain, such as: ? Acetaminophen or NSAIDs. ? Gels that contain a numbing medicine. ? An injection to block the pain near your nerve. Follow these instructions at home: Medicines ? Take ndcq-toc-opqrdsx and prescription medicines only as told by your dentist. ? If you were prescribed an antibiotic, take it as told by your dentist. Do not stop taking the antibiotic even if you start to feel better. ? If you were prescribed a gel that contains a numbing medicine, use it exactly as told in the directions. Do not use these gels for children who are younger than 2 years of age. ? Do not drive or use heavy machinery while taking prescription pain medicine. General instructions ? Rinse out your mouth often with salt water to relieve pain or swelling. To make a salt-water mixture, completely dissolve ??1 tsp of salt in 1 cup of warm water. ? Eat a soft diet while your abscess is healing. ? Drink enough fluid to keep your urine pale yellow. ? Do not apply heat to the outside of your mouth. ? Do not use any products that contain nicotine or tobacco, such as cigarettes and e-cigarettes. If you need help quitting, ask your health care provider. ? Keep all follow-up visits as told by your dentist. This is important. How is this prevented? ? [place] your teeth every morning and night with fluoride toothpaste. Floss one time each day. ? Get regularly scheduled dental cleanings. ? Consider having a dental sealant applied on teeth that have deep holes (caries). ? Drink fluoridated water regularly. This includes most tap water. Check the label on bottled water to see if it contains fluoride. ? Drink water instead of sugary drinks. ? Eat healthy meals and snacks. ? Wear a mouth guard or face shield to protect your teeth while playing sports. Contact a health care provider if: ? Your pain is worse and is not helped by medicine. Get help right away if: ? You have a fever or chills. ? Your symptoms suddenly get worse. ? You have a very bad headache. ? You have problems breathing or swallowing. ? You have trouble opening your mouth. ? You have swelling in your neck or around your eye. Summary ? A dental abscess is a collection of pus in or around a tooth that results from an infection. ? A dental abscess may result from severe tooth decay, trauma to the tooth, or severe gum disease around a tooth. ? Symptoms include severe pain, swelling, redness, and drainage of pus in and around the infected tooth. ? The first priority in treating a dental abscess is to drain out the pus. Treatment may (more content not included)... Normal [facility] Patient Letter FTon 2022 Patient Letter [facility] August 26, 2022 TORITO BENÍTEZ [address] [place] [address] Please excuse TORITO BENÍTEZ from work . Date and/or Time of Absence: 08/26/22 Restrictions: None Comments: Please excuse due to an acute illness. Provider Signature: Ninoska Kirby APRN, OIL PROGRAM COMPLIANCE SPECIALIST-C Nurse Practitioner [address] [place] [address] [place] [address] Normal [facility] HCG Quanton 01-30-2022 HCG Quant 893.4 mIU/mL [facility] Comment on above: Result Comment: Gest ational Age Expected HCG values (mIU/ml) 3 weeks 5-72 4 weeks 10-708 5 weeks 217-8,245 6 weeks 152-32,177 8 weeks 31,366-149,094 12 weeks 27,107-201,615 16 weeks 8,904-55,332 18 weeks 9,649-55,271 Performed By: #### H CGQ #### [facility] [address] [facility] [address] HCG, QUANTITATIVE, on 01-30-2022 hCG Quant 893.4 mIU/mL [facility] Comment on above: Gestational Age Expe cted HCG values (mIU/ml) 3 weeks 5-72 4 weeks 10-708 5 weeks 217-8,245 6 weeks 152-32,177 8 weeks 31,366-149,094 12 weeks 27,107-201,615 16 weeks 8,904-55,332 18 weeks 9,649-55,271 [facility] No Panel Informationon 01-20 Impression: A single intrauterine is seen that measures approximately 8 weeks 5 days. No heartbeat is demonstrated. This was discussed with at 5:05 PM on today's date. [facility] RADIOLOGY Comparison: No prior Diagnosis: N91.1 Secondary amenorrhea ICD10 Technique: US OB TRANSVAGINAL, US OB LESS THAN 14 WEEKS SINGLE OR FIRST GESTATION Findings: The uterus measures 8.0 x 7.7 x 6.7 cm and is retroflexed.. Ascending colon intrauterine is seen. Based on crown-rump length the gestational age is 8 weeks 5 days. No heartbeat is demonstrated. The right ovary measures 2.7 x 2.2 x 2.4 cm for volume of 7.5 mL. The left ovary measures 3.5 x 2.8 x 2.56 cm for volume of 9.1 mL. It contains a 2.0 x 2.3 x 2.5 cm cyst. Vascularity is demonstrated in both ovaries with color Doppler and spectral waveforms. The urinary bladder is unremarkable.. [facility] Collins Dumas, - 01/20/2022 Comparison: No prior Diagnosis: N91.1 Secondary amenorrhea ICD10 Technique: US OB TRANSVAGINAL, US OB LESS THAN 14 WEEKS SINGLE OR FIRST GESTATION Findings: The uterus measures 8.0 x 7.7 x 6.7 cm and is retroflexed.. Ascending colon intrauterine is seen. Based on crown-rump length the gestational age is 8 weeks 5 days. No heartbeat is demonstrated. The right ovary measures 2.7 x 2.2 x 2.4 cm for volume of 7.5 mL. The left ovary measures 3.5 x 2.8 x 2.56 cm for volume of 9.1 mL. It contains a 2.0 x 2.3 x 2.5 cm cyst. Vascularity is demonstrated in both ovaries with color Doppler and spectral waveforms. The urinary bladder is unremarkable.. IMPRESSION: Impression: A single intrauterine is seen that measures approximately 8 weeks 5 days. No heartbeat is demonstrated. This was discussed with at 5:05 PM on today's date. [employer] Phone: Radiology Study observation (narrative) [employer] Phone: No Panel InformationOrdered By: Collins Jasmine on 01-20-2022 [employer] Phone: US OB LESS THAN 14 WEEKS SIN GLE OR FIRST GESTATIONon 01-20-2022 US OB LESS THAN 14 WEEKS SINGLE OR FIRST GESTATION Comparison: No prior Diagnosis: N91.1 Secondary amenorrhea ICD10 Technique: US OB TRANSVAGINAL, US OB LESS THAN 14 WEEKS SINGLE OR FIRST GESTATION Findings: The uterus measures 8.0 x 7.7 x 6.7 cm and is retroflexed.. Ascending colon intrauterine is seen. Based on crown-rump length the gestational age is 8 weeks 5 days. No heartbeat is demonstrated. The right ovary measures 2.7 x 2.2 x 2.4 cm for volume of 7.5 mL. The left ovary measures 3.5 x 2.8 x 2.56 cm for volume of 9.1 mL. It contains a 2.0 x 2.3 x 2.5 cm cyst. Vascularity is demonstrated in both ovaries with color Doppler and spectral waveforms. The urinary bladder is unremarkable.. IMPRESSION: Impression: A single intrauterine is seen that measures approximately 8 weeks 5 days. No heartbeat is demonstrated. This was discussed with at 5:05 PM on today's date. Interpreted by: Collins Jasmine DO Signed by: Collins Jasmine DO 01/20/22 Final result Normal [facility] OB TRANSVAGINALon 022 US OB TRANSVAGINAL Comparison: No prior Diagnosis: N91.1 Secondary amenorrhea ICD10 Technique: US OB TRANSVAGINAL, US OB LESS THAN 14 WEEKS SINGLE OR FIRST GESTATION Findings: The uterus measures 8.0 x 7.7 x 6.7 cm and is retroflexed.. Ascending colon intrauterine is seen. Based on crown-rump length the gestational age is 8 weeks 5 days. No heartbeat is demonstrated. The right ovary measures 2.7 x 2.2 x 2.4 cm for volume of 7.5 mL. The left ovary measures 3.5 x 2.8 x 2.56 cm for volume of 9.1 mL. It contains a 2.0 x 2.3 x 2.5 cm cyst. Vascularity is demonstrated in both ovaries with color Doppler and spectral waveforms. The urinary bladder is unremarkable.. IMPRESSION: Impression: A single intrauterine is seen that measures approximately 8 weeks 5 days. No heartbeat is demonstrated. This was discussed with at 5:05 PM on today's date. Interpreted by: Collins Jasmine DO Signed by: Collins Jasmine DO 01/20/22 Final result Normal [facility] C.trachomatis N.gonorrhoeae DNAon 01-15-2022 C. trachomatis DNA JUDY+probe Ql (Unsp spec) Negative Normal Negative [facility] N. gonorrhoeae DNA JUDY+probe Ql (Unsp spec) Negative Normal Negative [facility] Drug Panel 9A, Screen Only, Urineon 01-10-2022 Alcohol, Urine Negative Normal Cutoff 40 [facility] Amphetamines, Urine Negative Normal Cutoff 300 [facility] Barbiturates, Urine Negative Normal Cutoff 200 [facility] Benzodiazepines, Urine Negative Normal Cutoff 200 [facility] CDTI 9A Comments See Note Normal [facility] Comment on above: Result Comment: INTE RPRETIVE INFORMATION: Drug Panel 9A, Screen Only, Urine This is a screening test only. False positive and false negative results can occur. Positive results are not automatically reflexed to a confirmatory test. Confirmation by GC/MS and/or LC-MS/MS must be requested separately. Confirmatory testing for drugs and/or drug classes detected by this screening test is recommended. The absence of expected drug(s) and/or drug metabolite(s) may indicate non-compliance, inappropriate timing of specimen collection relative to drug administration, poor drug absorption, diluted/adulterated urine, or limitations of testing. The concentration at which the screening test can detect a drug or metabolite varies within a drug class. The concentration value must be greater than or equal to the cutoff to be reported as positive. Interpretive questions should be directed to the laboratory. The following opioids are not detected in this test, but can be ordered separately: fentanyl, buprenorphine, meperidine, tramadol, and tapentadol. A comprehensive panel that includes these opioids is available or individual opioid testing can be ordered. Refer to [employer] for test information. For medical purposes only; not valid for forensic use. Performed by [employer], [address] [place] [id number] [email or web address], Marita Valdez MD - Lab. Director Cocaine, Urine Negative Normal Cutoff 150 [facility] Creatinine, Urine 189.0 mg/dL Normal 20.0-400.0 [facility] Marijuana, Urine Negative Normal Cutoff 20 [facility] MDMA, Urine Negative Normal Cutoff 500 [facility] Methadone, Urine Negative Normal Cutoff 150 [facility] Opiates, Urine Positive Normal Cutoff 300 [facility] Comment on above: Result Comment: Pres umptively POSITIVE for opiate(s) by enzyme immunoassay. NOT CONFIRMED by LC-MS/MS. Unconfirmed positive may be useful for medical purposes, but does not meet forensic standards. Oxycodone, Urine Negative Normal Cutoff 100 [facility] Phencyclidine, Urine Negative Normal Cutoff 25 [facility] Propoxyphene, Urine Negative Normal Cutoff 300 [facility] HSV 1 Glycoprotein G Ab, IgG on 01-10-2022 HSV 1 Glycoprotein G Ab, IgG 0.11 IV Normal <=0.89 [facility] Comment on above: Result Comment: REFE RENCE INTERVAL: HSV 1 Glycoprotein G Ab, IgG 0.89 IV or less ...... Negative - No significant level of detectable IgG antibody to HSV type 1 glycoprotein G. 0.90 - 1.09 IV ....... Equivocal - Questionable presence of IgG antibody to HSV type 1 glycoprotein G. Repeat testing in 10 - 14 days may be helpful. 1.10 IV or greater ... Positive - IgG antibody to HSV type 1 glycoprotein G detected, which may indicate a current or past HSV infection. Individuals infected with HSV may not exhibit detectable IgG antibody to type-specific HSV antigens 1 and 2 in early stages of infection. Detection of antibody presence in these cases may only be possible using a non-type specific screening test. Performed By: [facility] [address] [place] [address] Credit Verifier: Marita Valdez MD HSV 2 Glycoprotein G Ab, IgG on 01-10-2022 HSV 2 Glycoprotein G Ab, IgG 0.13 IV Normal <=0.89 [facility] Comment on above: Result Comment: REFE RENCE INTERVAL: HSV 2 Glycoprotein G Ab, IgG 0.89 IV or less ....... Negative - No significant level of detectable IgG antibody to HSV type 2 glycoprotein G. 0.90 - 1.09 IV ........ Equivocal - Questionable presence of IgG antibody to HSV type 2 glycoprotein G. Repeat testing in 10 - 14 days may be helpful. 1.10 IV or greater .... Positive - IgG antibody to HSV type 2 glycoprotein G detected, which may indicate a current or past HSV infection. Individuals infected with HSV may not exhibit detectable IgG antibody to type-specific HSV antigens 1 and 2 in early stages of infection. Detection of antibody presence in these cases may only be possible using a non-type specific screening test. Performed By: [facility] [address] [place] [address] Credit Verifier: Marita Valdez MD Varicella-Zoster Virus Ab, I gGon 01-10-2022 Varicella-Zoster Virus Ab, IgG 543.7 IV Normal [facility] Comment on above: Result Comment: INTE RPRETIVE INFORMATION: VZV Ab, IgG 134.9 IV or less ....... Negative - No significant level of detectable IgG varicella-zoster antibody. 135.0 - 164.9 IV ....... Equivocal - Repeat testing in 10-14 days may be helpful. 165.0 IV or greater .... Positive - IgG antibody to varicella-zoster detected, which may indicate a current or past varicella-zoster infection. The best evidence for current infection is a significant change on two appropriately timed specimens, where both tests are done in the same laboratory at the same time. Performed By: [facility] [address] [place] [address] Credit Verifier: Marita Valdez MD HIV Ag/Abon 01-09-2022 HIV Ag/Ab Non-Reactive Normal NR [facility] Comment on above: Result Comment: No l aboratory evidence of HIV infection. If acute HIV infection is suspected, consider testing for HIV-[address] [id number] ([phone] Hep C Abon 01-09-2022 Hep C Ab Non-Reactive Normal NR [facility] Comment on above: Result Comment: The hepatitis C procedure used in our laboratory is a Chemiluminescent test specific for three recombinant HCV antigens. A negative anti-HCV result indicates that the antibodies to hepatitis C virus are not present at this time. Individuals with reactive anti-HCV should be considered infected and infectious until proven otherwise. Confirmation of all equivocal or reactive results is recommended by ordering HCV RNA by PCR. [address] [id number] ([phone] RPRon 01-09-2022 Reagin Ab RPR Ql (S) Non-Reactive Normal Non-reacti [facility] ([place], [place]) Comment on above: Performed By: #### R NE #### [facility] [address] [place] [address] Trichmonas Vaginalis Screen (EIA)on 01-09-2022 Trichomonas Vaginalis Screen (EIA) Negative Normal [facility] Comment on above: Performed By: #### E TRIC #### [facility] [address] [place] [address] Wet Prep-Medical Purposes On collins 01-09-2022 Wet Prep Clue Cellls None Seen Normal [facility] Comment on above: Performed By: #### R UBEL #### [facility] [address] [place] [address] Wet Prep Trichomonas See EIA Normal [facility] Comment on above: Performed By: #### R UBEL #### [facility] [address] [place] [address] Wet Prep Yeast None Seen Normal [facility] Comment on above: Performed By: #### R UBEL #### [facility] [address] [place] [address] CBC With Platelet and Differ entialon 01-08-2022 Basophils (Bld) [#/Vol] 0.0 10*3/uL Normal 0.0-0.2 [facility] Comment on above: Performed By: #### C BCWD #### [facility] [address] [place] [address] Basophils/100 WBC (Bld) 0.3 % Normal [facility] ([place], [place]) Comment on above: Performed By: #### C BCWD #### [facility] [address] [place] [address] Eosinophils (Bld) [#/Vol] 0.1 10*3/uL Normal 0.0-0.7 [facility] Comment on above: Performed By: #### C BCWD #### [facility] [address] [place] [address] Eosinophils/100 WBC (Bld) 1.2 % Normal [facility] Comment on above: Performed By: #### C BCWD #### [facility] [address] [place] [address] Erythrocyte distribution width (RBC) [Ratio] 13.6 % Normal 11.5-14.5 [facility] Comment on above: Performed By: #### C BCWD #### [facility] [address] [place] [address] Hematocrit (Bld) [Volume fraction] 36.2 % Low 37.0-47.0 [facility] Comment on above: Performed By: #### C BCWD #### [facility] [address] [place] [address] Hemoglobin (Bld) [Mass/Vol] 12.4 g/dL Normal 12.0-16.0 [facility] Comment on above: Performed By: #### C BCWD #### [facility] [address] [place] [address] Lymphocytes (Bld) [#/Vol] 1.5 10*3/uL Normal 1.0-4.8 [facility] Comment on above: Performed By: #### C BCWD #### [facility] [address] [place] [address] Lymphocytes/100 WBC (Bld) 20.7 % Normal [facility] Comment on above: Performed By: #### C BCWD #### [facility] [address] [place] [address] MCH (RBC) [Entitic mass] 29.0 pg Normal 27.0-31.3 [facility] Comment on above: Performed By: #### C BCWD #### [facility] [address] [place] [address] MCHC 34.3 % Normal 33.0-37.0 [facility] Comment on above: Performed By: #### C BCWD #### [facility] [address] [place] [address] MCV (RBC) [Entitic vol] 84.4 fL Normal 82.0-100.0 [facility] Comment on above: Performed By: #### C BCWD #### [facility] [address] [place] [address] Monocytes (Bld) [#/Vol] 0.5 10*3/uL Normal 0.2-0.8 [facility] Comment on above: Performed By: #### C BCWD #### [facility] [address] [place] [address] Monocytes/100 WBC (Bld) 6.5 % Normal [facility] ([place], [place]) Comment on above: Performed By: #### C BCWD #### [facility] [address] [place] [address] Neutrophils (Bld) [#/Vol] 5.3 10*3/uL Normal 1.4-6.5 [facility] Comment on above: Performed By: #### C BCWD #### [facility] [address] [place] [address] Neutrophils/100 WBC (Bld) 71.3 % Normal [facility] Comment on above: Performed By: #### C BCWD #### [facility] [address] [place] [address] Platelets (Bld) [#/Vol] 253 10*3/uL Normal 130-400 [facility] Comment on above: Performed By: #### C BCWD #### [facility] [address] [place] [address] RBC (Bld) [#/Vol] 4.29 10*6/uL Normal 4.20-5.40 [facility] Comment on above: Performed By: #### C BCWD #### [facility] [address] [place] [address] WBC (Bld) [#/Vol] 7.4 10*3/uL Normal 4.8-10.8 [facility] Comment on above: Performed By: #### C BCWD #### [facility] [address] [place] [address] Comprehensive Metabolic Pane peter 01-08-2022 Albumin [Mass/Vol] 4.4 g/dL Normal 3.5-4.6 [facility] Comment on above: Performed By: #### C MP #### [facility] [address] [place] [address] ALP [Catalytic activity/Vol] 76 U/L Normal 40-130 [facility] Comment on above: Performed By: #### C MP #### [facility] [address] [place] [address] ALT [Catalytic activity/Vol] 14 U/L Normal 0-33 [facility] Comment on above: Performed By: #### C MP #### [facility] [address] [place] [address] Anion gap [Moles/Vol] 13 mmol/L Normal 9-15 [facility] Comment on above: Performed By: #### C MP #### [facility] [address] [place] [address] AST [Catalytic activity/Vol] 16 U/L Normal 0-35 [facility] Comment on above: Performed By: #### C MP #### [facility] [address] [place] [address] Bilirubin [Mass/Vol] mg/dL Normal 0.2-0.7 [facility] Comment on above: Performed By: #### C MP #### [facility] [address] [place] [address] Calcium [Mass/Vol] 8.8 mg/dL Normal 8.5-9.9 [facility] Comment on above: Performed By: #### C MP #### [facility] [address] [place] [address] Chloride [Moles/Vol] 103 mmol/L Normal 95-107 [facility] Comment on above: Performed By: #### C MP #### [facility] [address] [place] [address] CO2 [Moles/Vol] 19 mmol/L Low 20-31 [facility] Comment on above: Performed By: #### C MP #### [facility] [address] [place] [address] Creatinine [Mass/Vol] 0.61 mg/dL Normal 0.50-0.90 [facility] Comment on above: Performed By: #### C MP #### [facility] [address] [place] [address] GFR >60.0 Normal >60 [facility] Comment on above: Result Comment: >60 mL/min/1.73m2 EGFR, calc. for ages 18 and older using the MDRD formula (not corrected for weight), is valid for stable renal function. Performed By: #### C MP #### [facility] [address] [place] [address] GFR/1.73 sq M.predicted among blacks MDRD (S/P/Bld) [Vol rate/Area] mL/min/{1.73_m2} Normal >60 [facility] Comment on above: Result Comment: >60 mL/min/1.73m2 EGFR, calc. for ages 18 and older using the MDRD formula (not corrected for weight), is valid for stable renal function. Performed By: #### C MP #### [facility] [address] [place] [address] Globulin (S) [Mass/Vol] 3.0 g/dL Normal 2.3-3.5 [facility] ([place], [place]) Comment on above: Performed By: #### C MP #### [facility] [address] [place] [address] Glucose [Mass/Vol] 88 mg/dL Normal 70-99 [facility] Comment on above: Performed By: #### C MP #### [facility] [address] [place] [address] Potassium [Moles/Vol] 4.0 mmol/L Normal 3.4-4.9 [facility] Comment on above: Performed By: #### C MP #### [facility] [address] [place] [address] Protein [Mass/Vol] 7.4 g/dL Normal 6.3-8.0 [facility] Comment on above: Performed By: #### C MP #### [facility] [address] [place] [address] Sodium [Moles/Vol] 135 mmol/L Normal 135-144 [facility] Comment on above: Performed By: #### C MP #### [facility] [address] [place] [address] Urea nitrogen [Mass/Vol] 6 mg/dL Normal 6-20 [facility] Comment on above: Performed By: #### C MP #### [facility] [address] [place] [address] Culture, Urineon 01-08-2022 Culture, Urine ORDER#: [id number] ORDERED BY: GURPREET MYLES SOURCE: Urine Clean Catch COLLECTED: 01/08/22 13:11 ANTIBIOTICS AT HOMERO.: RECEIVED : 01/08/22 15:32 Culture, Urine FINAL 01/09/22 21:33 Cult,Urine: NO SIGNIFICANT GROWTH Performed at [place] [id number] ([phone] [facility] Comment on above: Performed By: #### R UBEL #### [facility] [address] [place] [address] HCG Quanton 01-08-2022 HCG Quant 38125.0 mIU/mL Normal [facility] Comment on above: Result Comment: Gest ational Age Expected HCG values (mIU/ml) 3 weeks 5-72 4 weeks 10-708 5 weeks 217-8,245 6 weeks 152-32,177 8 weeks 31,366-149,094 12 weeks 27,107-201,615 16 weeks 8,904-55,332 18 weeks 9,649-55,271 Performed By: #### R UBEL #### [facility] [address] [place] [address] Hepatitis B Surface Agon Hepatitis B Surface Ag Interp Non-Reactive Normal [facility] Comment on above: Performed By: #### H BSG #### [facility] [address] [place] [address] Rubella Ab, IgGon 01-08-2022 Rubella Ab, IgG 36.1 IU/mL Normal [facility] Comment on above: Result Comment: Ambreen ent's result indicates immunity. Default Normal Ranges >=10 Presumed Immune <10 Presumed Not immune Performed By: #### R UBEL #### [facility] [address] [place] [address] Type and 3 cell Screen OB Ca ptureon 01-08-2022 Type and 3 cell Screen OB Capture PATIENT: JACKELIN Alberto LOC: [facility], BILL# : [id number] : 1990 SEX: F ORDERED BY: SHAMEKA JEONG ORDERED : 01/08/2022 12:24 COLLECTED: 01/08/2022 12:23 ORDER : [id number] RECEIVED : 01/08/2022 15:31 TEST NAME RESULT UNITS RANGES ABN FL ST ABORH Capture O POS F Antibody 3 Cell Scrn Captu NEG F Normal [facility] Comment on above: Performed By: #### T SO3C #### [facility] [address] [place] [address] Urinalysis, reflex to micros copicon 01-08-2022 Bilirubin Ql (U) Negative Normal Negative [facility] Comment on above: Performed By: #### U A #### [facility] [address] [place] [address] Clarity (U) Clear Normal Clear [facility] Comment on above: Performed By: #### U A #### [facility] [address] [place] [address] Color (U) Yellow Normal Straw/Alpine [facility] Comment on above: Performed By: #### U A #### [facility] [address] [place] [address] Glucose Ql (U) Negative Normal Negative [facility] Comment on above: Performed By: #### U A #### [facility] [address] [place] [address] Hemoglobin Ql (U) Negative Normal Negative [facility] Comment on above: Performed By: #### U A #### [facility] [address] [place] [address] Ketones Ql (U) TRACE Abnormal Negative [facility] Comment on above: Performed By: #### U A #### [facility] [address] [place] [address] Leukocyte esterase Test strip Ql (U) Negative Normal Negative [facility] Comment on above: Performed By: #### U A #### [facility] [address] [place] [address] Nitrite Ql (U) Negative Normal Negative [facility] Comment on above: Performed By: #### U A #### [facility] [address] [place] [address] pH (U) 5.5 [pH] Normal 5.0-9.0 [facility] Comment on above: Performed By: #### U A #### [facility] [address] [place] [address] Protein Ql (U) Negative Normal Negative [facility] Comment on above: Performed By: #### U A #### [facility] [address] [place] [address] Specific gravity (U) [Rel density] 1.021 Normal 1.005-1.03 [facility] Comment on above: Performed By: #### U A #### [facility] [address] [place] [address] Urobilinogen Qn (U) 0.2 {Ashley'U}/dL Normal < 2.0 [facility] Comment on above: Performed By: #### U A #### [facility] [address] [place] [address] SEROLOGYOrdered By: John hendricks on 11-18-2021 HCG.beta subunit (U) [Moles/Vol] Negative Normal [facility] Man Sero Vital Signs Date Time Vital Sign Value Performing Clinician Facility 11-05-2023 14:21-0400 Body height 170.18 cm [facility] 11-05-2023 14:21-0400 Body mass index (BMI) [Ratio] 35 kg/m2 [facility] 11-05-2023 14:21-0400 Body weight 101.6 kg [facility] 11-05-2023 14:21-0400 Diastolic blood pressure 88 mm[Hg] [facility] 11-05-2023 14:21-0400 Heart rate 88 /min [facility] 11-05-2023 14:21-0400 SaO2% (BldA) [Mass fraction] 98 % [facility] 11-05-2023 14:21-0400 Systolic blood pressure 134 mm[Hg] [facility] 06-03-2023 08:30-0400 Body height 170.18 cm Brigid To Other [facility] Other 06-03-2023 08:30-0400 Body mass index (BMI) [Ratio] 34.89 kg/m2 Brigid To Other [facility] Other 06-03-2023 08:30-0400 Body weight 101.06 kg Brigid To Other [facility] [facility] Other 06-03-2023 08:30-0400 Diastolic blood pressure 74 mm[Hg] Brigid Zuleika Other [facility] Other 06-03-2023 08:30-0400 Respiratory rate 12 /min Brigid Gallowaycharles Other [facility] Other 06-03-2023 08:30-0400 SaO2% (BldA) [Mass fraction] 99 % Brigid Gallowaycharles Other [facility] Other 06-03-2023 08:30-0400 Systolic blood pressure 128 mm[Hg] Brigid Gallowaycharles Other [facility] Other 03-07-2023 10:11-0400 Blood Pressure Location Shola Newton [facility] 03-07-2023 10:11-0400 Body temperature 97.7 [degF] Shola Newton [facility] 03-07-2023 10:11-0400 Diastolic blood pressure 86 mm[Hg] Shola Makipsey [facility] 03-07-2023 10:11-0400 Heart rate 75 /min Shola Makipsey [facility] 03-07-2023 10:11-0400 SaO2% (BldA) [Mass fraction] 98 % Shola Newton [facility] 03-07-2023 10:11-0400 Systolic blood pressure 140 mm[Hg] Shola Makipsey [facility] 03-06-2023 21:45-0400 Body temperature 98.6 [degF] Maddisoninn Dokken [facility] 03-06-2023 21:45-0400 Diastolic blood pressure 100 mm[Hg] Maddisoninn Dokken [facility] 03-06-2023 21:45-0400 Heart rate 88 /min Maddisoninn Dokken [facility] 03-06-2023 21:45-0400 Respiratory rate 16 /min Racheln Dokken [facility] 03-06-2023 21:45-0400 SaO2% (BldA) [Mass fraction] 99 % Racheln Dokken [facility] 03-06-2023 21:45-0400 Systolic blood pressure 169 mm[Hg] Racheln Dokken [facility] 02-15-2023 20:02-0400 Body temperature 97.7 [degF] Bucky Roman [facility] 02-15-2023 20:02-0400 Diastolic blood pressure 108 mm[Hg] Bucky Roman [facility] 02-15-2023 20:02-0400 Heart rate 68 /min Bucky Roman [facility] 02-15-2023 20:02-0400 Respiratory rate 18 /min Bucky Roman [facility] 02-15-2023 20:02-0400 SaO2% (BldA) [Mass fraction] 99 % Bucky Roman [facility] 02-15-2023 20:02-0400 Systolic blood pressure 190 mm[Hg] Bucky Roman [facility] 08-26-2022 11:27-0500 Blood Pressure Location Ninoska Orzech [facility] 08-26-2022 11:27-0500 Body temperature 98.96 [degF] Ninoska Kirby [facility] 08-26-2022 11:27-0500 Diastolic blood pressure 82 mm[Hg] Ninoska Kirby [facility] 08-26-2022 11:27-0500 Heart rate 73 /min Ninoska Kirby [facility] 08-26-2022 11:27-0500 SaO2% (BldA) [Mass fraction] 97 % Ninoska Kirby [facility] 08-26-2022 11:27-0500 Systolic blood pressure 138 mm[Hg] Ninoska Kirby [facility] 01-30-2022 10:45-0400 Body height 170.2 cm Gurpreet العراقي DO Work Phone: [facility] [employer] 01-30-2022 10:45-0400 Body mass index (BMI) [Ratio] 38.06 kg/m2 Gurpreet العراقي DO Work Phone: [employer] 01-30-2022 10:45-0400 Body temperature 97.11 [degF] Gurpreet العراقي DO Work Phone: [employer] 01-30-2022 10:45-0400 Body weight 110.22 kg Gurpreet العراقي DO Work Phone: [employer] 01-30-2022 10:45-0400 Diastolic blood pressure 90 mm[Hg] Gurpreet العراقي DO Work Phone: [employer] 01-30-2022 10:45-0400 Heart rate 70 /min Gurpreet العراقي DO Work Phone: [employer] 01-30-2022 10:45-0400 Respiratory rate 16 /min Gurpreet العراقي DO Work Phone: [facility] 01-30-2022 10:45-0400 SaO2% (BldA) [Mass fraction] 98 % Gurpreet العراقي DO Work Phone: [facility] 01-30-2022 10:45-0400 Systolic blood pressure 138 mm[Hg] Gurpreet العراقي DO Work Phone: [facility] 11-18-2021 17:00-0400 Diastolic blood pressure 85 mm[Hg] Bucky Roman [facility] 11-18-2021 17:00-0400 Heart rate 80 /min Bucky Roman [facility] 11-18-2021 17:00-0400 SaO2% (BldA) [Mass fraction] 97 % Bucky Roman [facility] 11-18-2021 17:00-0400 Systolic blood pressure 155 mm[Hg] Bucky Roman [facility] 11-18-2021 16:26-0400 Diastolic blood pressure 104 mm[Hg] Bucky Roman [facility] 11-18-2021 16:26-0400 Heart rate 83 /min Bucky Roman [facility] 11-18-2021 16:26-0400 Respiratory rate 20 /min Bucky Roman [facility] 11-18-2021 16:26-0400 SaO2% (BldA) [Mass fraction] 99 % Bucky Roman [facility] 11-18-2021 16:26-0400 Systolic blood pressure 144 mm[Hg] Bucky Roman [facility] 11-18-2021 16:08-0400 Body temperature 98.06 [degF] Bucky Owens [facility] 11-18-2021 16:08-0400 Diastolic blood pressure 101 mm[Hg] Bucky Roman [facility] 11-18-2021 16:08-0400 Heart rate 85 /min Bucky Roman [facility] 11-18-2021 16:08-0400 Respiratory rate 18 /min Bucky Owens [facility] 11-18-2021 16:08-0400 SaO2% (BldA) [Mass fraction] 99 % Bucky Roman [facility] 11-18-2021 16:08-0400 Systolic blood pressure 172 mm[Hg] Bucky Owens [facility] Encounters Encounter Date Encounter Type Care Provider Facility Start: 11-05-2023 End: 11-05-2023 ambulatory [facility] Work Phone: Start: 11-05-2023 End: 11-05-2023 Patient encounter procedure [facility] Work Phone: Start: 06-17-2023 End: 06-17-2023 ambulatory Brigid To Other [employer] [facility] Other Start: 06-17-2023 Encounter by jas To [facility] Start: 06-03-2023 End: 06-03-2023 ambulatory Brigid To Other [facility] [facility] [facility] Other Start: 06-03-2023 Encounter for genera l adult medical examination without abnormal findings Brigid To [facility] Start: 06-03-2023 Initial preventive medicine new pt age 18-39yrs Brigid To [facility] Start: 03-07-2023 End: 03-08-2023 ambulatory Shola Newton Facility:[facility] Start: 03-07-2023 End: 03-07-2023 Patient encounter procedure Shola Newton [facility] Start: 03-06-2023 End: 03-07-2023 Emergency department patient visit Penny Knight Donusrat Facility:[facility] Start: 03-06-2023 End: 03-07-2023 [facility] Start: 02-15-2023 End: 02-16-2023 Emergency department patient visit Bucky Owens Facility:[facility] Start: 02-15-2023 End: 02-15-2023 Emergency department patient visit Bucky Owens [facility] Start: 08-26-2022 End: 08-27-2022 ambulatory Ninoska X Orzech Facility:[facility] Start: 08-26-2022 End: 08-26-2022 Patient encounter procedure Ninoska X Orzech [facility] Start: 01-30-2022 End: 01-30-[address] 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 Start: 11-18-2021 End: 11-18-2021 Emergency department patient visit Bucky MNette Owens [facility] Procedures Date Procedure Procedure Detail Performing Clinician Start: 01-30-2022 Gonadotropin chorion ic quantitative Gurpreet العراقي DO Work Phone: Start: 01-20-2022 Us uterus 1 4 wk transabdl 08/03 gestat Gurpreet العراقي DO Work Phone: Start: 01-11-2022 Microscopic observat ion [Identifier] in Cervix by Cyto stain Neto 1 section Bucky Roman Extraction of wisdom tooth K padmini Roman Plan of Treatment Date Care Activity Detail Author Start: 05-28-2025 DTaP/Tdap/Td vaccine (3 - Td or Tdap) DTaP/Tdap/Td vaccine (3 - Td or Tdap) [facility] Start: 01-11-2025 Screening for malignant neoplasm of cervix [facility] Start: 12-11-2022 Depression Monitoring Depression Monitoring [facility] Start: 04-03-2022 Influenza vaccination Flu vaccine (Season Ended) [facility] Start: 01-29-2022 End: 01-29-2022 ambulatory 01/29/2022 Initial Obstetrics and Gynecology Gurpreet العراقي DO [address] [place] [address] [facility] Obstetrics and Gynecology Start: 01-23-2022 End: 01-23-2022 Telemedicine consultation with patient 01/23/2022 Telemedicine Obstetrics and Gynecology Gurpreet العراقي DO [address] [place] [address] [facility] Obstetrics and Gynecology Start: 2021 Screening for malignant neoplasm of cervix HPV (without or with Pap) [facility] Start: 1996 COVID-19 Vaccine (1) COVID-19 Vaccine (1) [facility] Start: 1992 Varicella vaccine (1 of 2 - 2-dose childhood series) Varicella vaccine (1 of 2 - 2-dose childhood series) [facility] Immunizations Immunization Date Immunization Notes Care Provider Trevor brock NEGATED: Highlighted row has not occurred!03-07-2023 SARS-CoV-2 mRNA (tozinameran 5y-11y) vaccine Penny Williamson [facility] NEGATED: Highlighted row has not occurred!08-26-2022 influenza virus vaccine, unspecified formulation [facility] NEGATED: Highlighted row has not occurred!08-26-2022 SARS-CoV-2 mRNA (tozinameran 5y-11y) vaccine Ninoska OrYogiyo [facility] Payers Date Payer Category Payer Unknown [id number] 2020 Private Health Insurance [id number] 1991 Unknown [id number] 1991 Unknown [id number] 1991 Unknown [id number] 1991 Unknown [id number] 27 1991 Unknown [id number] 27 1991 Unknown [id number] 27 1991 Unknown [id number] 27 [employer] ( and others) [facility] [id number] Social History Date Type Detail Facility Start: 12-12-2019 Tobacco smoking status Smoker (findi ng) [facility] Tobacco smoking status Never [facility] Sex Assigned At Female [facility] Start: 01-08-2022 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 5 [employer] Phone: Start: 12-11-2021 History 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 [employer] Phone: Start: 11-14-2020 History SDOH Transpo rt Med 2 [employer] Work Phone: Start: 08-19-2018 Tobacco Comment trying to quit [employer] Phone: Start: 1990 Sex Assigned At Female [facility] Start: 01-20-2022 End: 01-30-2022 Exposure to SARS-CoV-2 (event) Not sure [employer] Start: 08-26-2022 End: 11-05-2023 Tobacco smoking status Never smoked tobacco (finding) [facility] Functional Status Date Assessment Result Facility 03-07-2023 Functional Status N/A [facility] 03-06-2023 Functional Status N/A [facility] 02-15-2023 Functional Status N/A [facility] 08-26-2022 Functional Status N/A [facility] Clinical Notes 11-18-2021 to 06-03-2023 Note Date & Type Note Facility 06-03-2023 Evaluation note Encounter Date Diagnosis Assessment Notes Jun, Neck pain on left side (ICD-10 - M54.2) Discussed with pt in great detail headache symptoms and recommended imaging of the neck. Discussed other treatment options including continued use of the flexeril. Also add ice or heat, Salonpas pain relieving patches, massage, improve posture while working. Will call with results of x-ray and further recommendations. Pt verbalizes understanding and agrees to plan of care. Jun, Wellness examination (ICD-10 - Z00.00) Personalized health advice was given to the beneficiary including a written plan for screenings discussed and provided. Additional counseling was provided here today in regards to general topics regarding health education were discussed in detail. All preventative issues were discussed including remaining a nonsmoker, colorectal screening, the importance of proper sleep for brain health maintenance, maintaining a heart-healthy balanced diet, recognizing and addressing signs of anxiety and depression, maintaining positive relationships with family and friends. Jun, Nonintractable headache, unspecified chronicity pattern, unspecified headache type (ICD-10 - R51.9) Jun, Screening for metabolic disorder (ICD-10 - Z13.228) will call lab and diagnostic results and recommendations Jun, Screening for lipid disorders (ICD-10 - Z13.220) Jun, Screening for deficiency anemia (ICD-10 - Z13.0) [employer] Other 08-05-2023 Hospital Discharge instructions Patient Education 03/07/2023 10:43:19 BMI for Adults BMI for Adults What is BMI? Body mass index (BMI) is a number that is calculated from a person's weight and height. BMI can help estimate how much of a person's weight is composed of fat. BMI does not measure body fat directly.Rather, it is an alternative to procedures that directly measure body fat, which can be difficult and expensive. BMI can help identify people who may be at higher risk for certain medical problems. What are BMI measurements used for? BMI is used as a screening tool to identify possible weight problems. It helps determine whether a person is obese, overweight, a healthy weight, or underweight. BMI is useful for: Identifying a weight problem that may be related to a medical condition or may increase the risk for medical problems. Promoting changes, such as changes in diet and exercise, to help reach a healthy weight. BMI screening can be repeated to see if these changes are working. How is BMI calculated? BMI involves measuring your weight in relation to your height. Both height and weight are measured,and the BMI is calculated from those numbers. This can be done either in [place] ([place] or metric measurements. Note that charts and online BMI calculators are available to help you find your BMI quickly and easily without having to do these calculations yourself. To calculate your BMI in [place] measurements: 1.Measure your weight in pounds (lb). 2.Multiply the number of pounds by 703. For example, for a person who weighs 180 lb, multiply that number by 703, which equals 126,540. 3.Measure your height in inches. Then multiply that number by itself to get a measurement called inches squared. For example, for a person who is 70 inches tall, the inches squared measurement is 70 inches x 70inches, which equals 4,900 inches squared. 4.Divide the total from step 2 (number of lb x 703) by the total from step 3 (inches squared): 126,540 4,900 = 25.8. This is your BMI. To calculate your BMI in metric measurements: 1.Measure your weight in kilograms (kg). 2.Measure your height in meters (m). Then multiply that number by itself to get a measurement called meters squared. For example, for a person who is 1.75 m tall, the meters squared measurement is 1.75 m x 1.75 m, which is equal to 3.1 meters squared. 3.Divide the number of kilograms (your weight) by the meters squared number. In this example: 70 3.1 = 22.6. This is your BMI. What do the results mean? BMI charts are used to identify whether you are underweight, normal weight, overweight, or obese. The following guidelines will be used: Underweight: BMI less than 18.5. Normal weight: BMI between 18.5 and 24.9. Overweight: BMI between 25 and 29.9. Obese: BMI of 30 or above. Keep these notes in mind: Weight includes both fat and muscle, so someone with a muscular build, such as an athlete, may havea BMI that is higher than 24.9. In cases like these, BMI is not an accurate measure of body fat. To determine if excess body fat is the cause of a BMI of 25 or higher, further assessments may needto be done by a health care provider. BMI is usually interpreted in the same way for men and women. Where to find more information For more information about BMI, including tools to quickly calculate your BMI, go to these websites: Centers for Disease Control and Prevention: www.cdc.gov [place] [employer]: www.heart.org National Heart, Lung, and Blood [place]: www.nhlbi.nih.gov Summary Body mass index (BMI) is a number that is calculated from a person's weight and height. BMI may help estimate how much of a person's weight is composed of fat. BMI can help identify thosewho may be at higher risk for certain medical problems. BMI can be measured using [place] measurements or metric measurements. BMI charts are used to identify whether you are underweight, normal weight, overweight, or obese. This information is not intended to replace advice given to you by your health care provider. Make sure you discuss any questions you have with your health care provider. Document Revised: 04/11/2020 Document Reviewed: 02/17/2020 [employer] Patient Education 2022 [employer] 03/07/2023 10:43:17 Ankle Sprain, Cvtp-el-Jgfd Ankle Sprain An ankle sprain is a stretch or tear in one of the tough tissues (ligaments) that connect the bonesin your ankle. An ankle sprain can happen when the ankle rolls outward (inversion sprain) or inward(eversion sprain). What are the causes? This condition is caused by rolling or twisting the ankle. What increases the risk? You are more likely to develop this condition if you play sports. What are the signs or symptoms? Symptoms of this condition include: Pain in your ankle. Swelling. Bruising. This may happen right after you sprain your ankle or 1 2 days later. Trouble standing or walking. How is this diagnosed? This condition is diagnosed with: A physical exam. During the exam, your doctor will press on certain parts of your foot and ankle and try to move them in certain ways. X-ray imaging. These may be taken to see how bad the sprain is and to check for broken bones. How is this treated? This condition may be treated with: A brace or splint. This is used to keep the ankle from moving until it heals. An elastic bandage. This is used to support the ankle. Crutches. Pain medicine. Surgery. This may be needed if the sprain is very bad. Physical therapy. This may help to improve movement in the ankle. Follow these instructions at home: If you have a brace or a splint: Wear the brace or splint as told by your doctor. Remove it only as told by your doctor. Loosen the brace or splint if your toes: ?Tingle. ?Lose feeling (become numb). ?Turn cold and blue. Keep the brace or splint clean. If the brace or splint is not waterproof: ?Do not let it get wet. ?Cover it with a watertight covering when you take a bath or a shower. If you have an elastic bandage (dressing): Remove it to shower or bathe. Try not to move your ankle much, but wiggle your toes from time to time. This helps to prevent swelling. Adjust the dressing if it feels too tight. Loosen the dressing if your foot: ?Loses feeling. ?Tingles. ?Becomes cold and blue. Managing pain, stiffness, and swelling Take dtqq-cic-nfskqzk and prescription medicines only as told by doctor. For 2 3 days, keep your ankle raised (elevated) above the level of your heart. If told, put ice on the injured area: ?If you have a removable brace or splint, remove it as told by your doctor. ?Put ice in a plastic bag. ?Place a towel between your skin and the bag. ?Leave the ice on for 20 minutes, 2 3 times a day. General instructions Rest your ankle. Do not use your injured leg to support your body weight until your doctor says that you can. Use crutches as told by your doctor. Do not use any products that contain nicotine or tobacco, such as cigarettes, e- cigarettes, and chewing tobacco. If you need help quitting, ask your doctor. Keep all follow-up visits as told by your doctor. Contact a doctor if: Your bruises or swelling are quickly getting worse. Your pain does not get better after you take medicine. Get help right away if: You cannot feel your toes or foot. Your foot or toes look blue. You have very bad pain that gets worse. Summary An ankle sprain is a stretch or tear in one of the tough tissues (ligaments) that connect the bonesin your ankle. This condition is caused by rolling or twisting the ankle. Symptoms include pain, swelling, bruising, and trouble walking. To help with pain and swelling, put ice on the injured ankle, raise your ankle above the level of your heart, and use an elastic bandage. Also, rest as told by your doctor. Keep all follow-up visits as told by your doctor. This is important. This information is not intended to replace advice given to you by your health care provider. Make sure you discuss any questions you have with your health care provider. Document Revised: 09/12/2021 Document Reviewed: 09/12/2021 [employer] Patient Education 2022 [employer] Follow Up Care 03/07/2023 10:00:51 With:GENET SNYDER CNP Address: [address] [place] [phone]- When: Unknown [facility] 07-17-2023 Hospital Discharge instructions Patient Education 02/15/2023 22:01:44 Dental Pain Dental Pain Dental pain is often a sign that something is wrong with your teeth or gums. It is also something that can occur following dental treatment. If you have dental pain, it is important to contact your dental care provider, especially if the cause of the pain has not been determined. Dental pain may beof varying intensity and can be caused by many things, including: Tooth decay (cavities or caries). Cavities are caused by bacteria that produce acids that irritate the nerve of your tooth, making it sensitive to air and hot or cold temperatures. This eventually causes discomfort or pain. Abscess or infection. Once the bacteria reach the inner part of the tooth (pulp), a bacterial infection (dental abscess) can occur. Pus typically collects at the end of the root of a tooth. Injury. A crack in the tooth. Gum recession exposing the root, and possibly the nerves, of a tooth. Gum (periodontal)disease. Abnormal grinding or clenching. Poor or improper home care. An unknown reason (idiopathic). Your pain may be mild or severe. It may occur when you are: Chewing. Exposed to hot or cold temperatures. Eating or drinking sugary foods or beverages, such as soda or candy. Your pain may be constant, or it may come and go without cause. Follow these instructions at home: The following actions may help to lessen any discomfort that you are feeling before or after getting dental care. Medicines Take kibi-zbo-avjklxx and prescription medicines only as told by your dental care provider. If you were prescribed an antibiotic medicine, take it as told by your dental care provider. Do notstop taking the antibiotic even if you start to feel better. Eating and drinking Avoid foods or drinks that cause you pain, such as: Very hot or very cold foods or drinks. Sweet or sugary foods or drinks. Managing pain and swelling Ice can sometimes be used to reduce pain and swelling, especially if the pain is following dental treatment. If directed, put ice on the painful area of your face. To do this: ?Put ice in a plastic bag. ?Place a towel between your skin and the bag. ?Leave the ice on for 20 minutes, 2 3 times a day. ?Remove the ice if your skin turns bright red. This is very important. If you cannot feel pain, heat, or cold, you have a greater risk of damage to the area. Brushing your teeth To keep your mouth and gums healthy, brush your teeth twice a day using a fluoride toothpaste. Use a toothpaste made for sensitive teeth as directed by your dental care provider, especially if the root is exposed. Always brush your teeth with a soft-bristled toothbrush. This will help prevent irritation to your gums. General instructions Floss at least once a day. Do not apply heat to the outside of the face. Gargle with a mixture of salt and water 3 4 times a day or as needed. To make salt water, completely dissolve 1 tsp (3 6 g) of salt in 1 cup (237 mL) of warm water. Keep all follow-up visits. This is important. Contact a dental care provider if: You have any unexplained dental pain. Your pain is not controlled with medicines. Your symptoms get worse. You have new symptoms. Get help right away if: You are unable to open your mouth. You are having trouble breathing or swallowing. You have a fever. You notice that your face, neck, or jaw is swollen. These symptoms may represent a serious problem that is an emergency. Do not wait to see if the symptoms will go away. Get medical help right away. Call your local emergency services (911 in the [place] Do not drive yourself to the hospital. Summary Dental pain may be caused by many things, including tooth decay and infection. Your pain may be mild or severe. Take gpiw-hsa-bubqgdd and prescription medicines only as told by your dental care provider. Watch your dental pain for any changes. Let your dental care provider know if your symptoms get worse. This information is not intended to replace advice given to you by your health care provider. Make sure you discuss any questions you have with your health care provider. Document Revised: 04/24/2021 Document Reviewed: 04/24/2021 [employer] Patient Education 2022 [employer] Follow Up Care 02/15/2023 18:50:36 With:GENET SNYDER Address: [address] [place] [phone] Business (1) When:Within 3 Day(s) [facility]07-16-2023 Evaluation + Plan noteExtracted from: Title:ED Note Author:Ellis Jean DO Date :02/15/23 Pain, dental (K08.89: Other specified disorders of teeth and supporting structures) Orders: acetaminophen-oxycodone, 1 tab(s), Tab, Oral, Once, Stop date 02/15/23 21:35:00 EDT, STAT, Start date 02/15/23 21:35:00 EDT amoxicillin, 875 mg = 1 tab(s), Tab, Oral, Once, Stop date 02/15/23 21:36:00 EDT, STAT, Start date 02/15/23 21:36:00 EDT, 02/15/23 21:36:00 EDT amoxicillin, 875 mg = 1 tab(s), Oral, BID, X 7 day(s), # 14 tab(s), Refills(s) 0, Pharmacy: [facility]/pharmacy #[id number], 170, cm, 02/15/23 20:06:00 EDT, Height/Length Dosing, 106.6, kg, 02/15/23 20:06:00 EDT, Weight Dosing benzocaine topical, 1 denny, Gel, Topical, QID for 30 day(s), Stop date 03/17/23 21:35:00 EDT, STAT, Start date 02/15/23 21:36:00 EDT [facility]01-24-2023 Hospital Discharge instructions Patient Education 08/26/2022 11:44:55 Dental Abscess Dental Abscess A dental abscess is a collection of pus in or around a tooth that results from an infection. An abscess can cause pain in the affected area as well as other symptoms. Treatment is important to help with symptoms and to prevent the infection from spreading. What are the causes? This condition is caused by a bacterial infection around the root of the tooth that involves the inner part of the tooth (pulp). It may result from: Severe tooth decay. Trauma to the tooth, such as a broken or chipped tooth, that allows bacteria to enter into the pulp. Severe gum disease around a tooth. What increases the risk? This condition is more likely to develop in males. It is also more likely to develop in people who: Have dental decay (cavities). Eat sugary snacks between meals. Use tobacco products. Have diabetes. Have a weakened disease-fighting system (immune system). Do not brush and care for their teeth regularly. What are the signs or symptoms? Symptoms of this condition include: Severe pain in and around the infected tooth. Swelling and redness around the infected tooth, in the mouth, or in the face. Tenderness. Pus drainage. Bad breath. Bitter taste in the mouth. Difficulty swallowing. Difficulty opening the mouth. Nausea. Vomiting. Chills. Swollen neck glands. Fever. How is this diagnosed? This condition is diagnosed based on: Your symptoms and your medical and dental history. An examination of the infected tooth. During the exam, your dentist may tap on the infected tooth. You may also have X-rays of the affected area. How is this treated? This condition is treated by getting rid of the infection. This may be done with: Incision and drainage. This procedure is done by making an incision in the abscess to drain out thepus. Removing pus is the first priority in treating an abscess. Antibiotic medicines. These may be used in certain situations. Antibacterial mouth rinse. A root canal. This may be performed to save the tooth. Your dentist accesses the visible part of your tooth (crown) with a drill and removes any damaged pulp. Then the space is filled and sealed off. Tooth extraction. The tooth is pulled out if it cannot be saved by other treatment. You may also receive treatment for pain, such as: Acetaminophen or NSAIDs. Gels that contain a numbing medicine. An injection to block the pain near your nerve. Follow these instructions at home: Medicines Take wdfe-ims-itqtxyg and prescription medicines only as told by your dentist. If you were prescribed an antibiotic, take it as told by your dentist. Do not stop taking the antibiotic even if you start to feel better. If you were prescribed a gel that contains a numbing medicine, use it exactly as told in the directions. Do not use these gels for children who are younger than 2 years of age. Do not drive or use heavy machinery while taking prescription pain medicine. General instructions Rinse out your mouth often with salt water to relieve pain or swelling. To make a salt-water mixture, completely dissolve 1 tsp of salt in 1 cup of warm water. Eat a soft diet while your abscess is healing. Drink enough fluid to keep your urine pale yellow. Do not apply heat to the outside of your mouth. Do not use any products that contain nicotine or tobacco, such as cigarettes and e-cigarettes. If you need help quitting, ask your health care provider. Keep all follow-up visits as told by your dentist. This is important. How is this prevented? [place] your teeth every morning and night with fluoride toothpaste. Floss one time each day. Get regularly scheduled dental cleanings. Consider having a dental sealant applied on teeth that have deep holes (caries). Drink fluoridated water regularly. This includes most tap water. Check the label on bottled water to see if it contains fluoride. Drink water instead of sugary drinks. Eat healthy meals and snacks. Wear a mouth guard or face shield to protect your teeth while playing sports. Contact a health care provider if: Your pain is worse and is not helped by medicine. Get help right away if: You have a fever or chills. Your symptoms suddenly get worse. You have a very bad headache. You have problems breathing or swallowing. You have trouble opening your mouth. You have swelling in your neck or around your eye. Summary A dental abscess is a collection of pus in or around a tooth that results from an infection. A dental abscess may result from severe tooth decay, trauma to the tooth, or severe gum disease around a tooth. Symptoms include severe pain, swelling, redness, and drainage of pus in and around the infected tooth. The first priority in treating a dental abscess is to drain out the pus. Treatment may also involveremoving damage inside the tooth (root canal) or pulling out (extracting) the tooth. This information is not intended to replace advice given to you by your health care provider. Make sure you discuss any questions you have with your health care provider. Document Released: 07/20/2006 Document Revised: 07/02/2018 Document Reviewed: 03/22/2018 [employer] Patient Education 2020 [employer]. 08/26/2022 11:44:48 BMI for Adults BMI for Adults Body mass index (BMI) is a number that is calculated from a person's weight and height. BMI may help to estimate how much of a person's weight is composed of fat. BMI can help identify those who may be at higher risk for certain medical problems. How is BMI used with adults? BMI is used as a screening tool to identify possible weight problems. It is used to check whether aperson is obese, overweight, healthy weight, or underweight. How is BMI calculated? BMI measures your weight and compares it to your height. This can be done either in [place] ([place] or metric measurements. Note that charts are available to help you find your BMI quickly and easily without having to do these calculations yourself. To calculate your BMI in [place] measurements, your health care provider will: 1.Measure your weight in pounds (lb). 2.Multiply the number of pounds by 703. For example, for a person who weighs 180 lb, multiply that number by 703, which equals 126,540. 3.Measure your height in inches (in). Then multiply that number by itself to get a measurement called inches squared. For example, for a person who is 70 in tall, the inches squared measurement is 70 in x 70 in, which equals 4900 inches squared. 4.Divide the total from Step 2 (number of lb x 703) by the total from Step 3 (inches squared): 126,540 4900 = 25.8. This is your BMI. To calculate your BMI in metric measurements, your health care provider will: 1.Measure your weight in kilograms (kg). 2.Measure your height in meters (m). Then multiply that number by itself to get a measurement called meters squared. For example, for a person who is 1.75 m tall, the meters squared measurement is 1.75 m x 1.75 m, which is equal to 3.1 meters squared. 3.Divide the number of kilograms (your weight) by the meters squared number. In this example: 70 3.1 = 22.6. This is your BMI. How is BMI interpreted? To interpret your results, your health care provider will use BMI charts to identify whether you are underweight, normal weight, overweight, or obese. The following guidelines will be used: Underweight: BMI less than 18.5. Normal weight: BMI between 18.5 and 24.9. Overweight: BMI between 25 and 29.9. Obese: BMI of 30 and above. Please note: Weight includes both fat and muscle, so someone with a muscular build, such as an athlete, may havea BMI that is higher than 24.9. In cases like these, BMI is not an accurate measure of body fat. To determine if excess body fat is the cause of a BMI of 25 or higher, further assessments may needto be done by a health care provider. BMI is usually interpreted in the same way for men and women. Why is BMI a useful tool? BMI is useful in two ways: Identifying a weight problem that may be related to a medical condition, or that may increase the risk for medical problems. Promoting lifestyle and diet changes in order to reach a healthy weight. Summary Body mass index (BMI) is a number that is calculated from a person's weight and height. BMI may help to estimate how much of a person's weight is composed of fat. BMI can help identify those who may be at higher risk for certain medical problems. BMI can be measured using [place] measurements or metric measurements. To interpret your results, your health care provider will use BMI charts to identify whether you are underweight, normal weight, overweight, or obese. This information is not intended to replace advice given to you by your health care provider. Make sure you discuss any questions you have with your health care provider. Document Released: 03/31/2005 Document Revised: 07/02/2018 Document Reviewed: 06/02/2018 [employer] Patient Education 2020 [employer]. Follow Up Care 08/26/2022 11:10:58 With:WILLOW MCGARRYGENET Address: [address] [place] [address] [address] [place] [address]- When: Unknown [facility] 06-30-2022 History of Present illness Narrative* Latonya Hollingsworth RN - 01/30/2022 12:40 PM EDT Spoke with Dr Amador resendez re: pt's heaving bleeding with clots, per Dr Amador resendez to continue to medicate pt with methergine and discharge. Medicated pt per order, instructed pt to call Dr Amador Resendez's office with any questions or concerns and to take it easy till bleeding subsides, verbalized understanding, case cancelled in pre op, pt ambulated out of ss with boyfriend and steady gait pt stable * Latonya Hollingsworth RN - 01/30/2022 12:18 PM EDT Pt had a breakthrough of vaginal bleeding, assisted pt to bathroom with washcloths and new mesh panties and wipes, boyfriend at [facility] * Gurpreet العراقي DO - 01/30/2022 11:46 AM EDT Patient's hcg Reviewed may discharge no evacuation necessary documented in this encounterBON [facility] Work Phone: [phone] 377-174204-18-2022 Hospital Discharge instructions Patient Education 11/18/2021 17:05:46 Migraine Headache, Ycjd-pi-[id number] Migraine Headache A migraine headache is a very strong throbbing pain on one side or both sides of your head. This type of headache can also cause other symptoms. It can last from 4 hours to 3 days. Talk with your doctor about what things may bring on (trigger) this condition. What are the causes? The exact cause of this condition is not known. This condition may be triggered or caused by: Drinking alcohol. Smoking. Taking medicines, such as: ?Medicine used to treat chest pain (nitroglycerin). ? control pills. ?Estrogen. ?Some blood pressure medicines. Eating or drinking certain products. Doing physical activity. Other things that may trigger a migraine headache include: Having a menstrual period. . Hunger. Stress. Not getting enough sleep or getting too much sleep. Weather changes. Tiredness (fatigue). What increases the risk? Being [age] years old. Being female. Having a family history of migraine headaches. Being . Having depression or anxiety. Being very overweight. What are the signs or symptoms? A throbbing pain. This pain may: ?Happen in any area of the head, such as on one side or both sides. ?Make it hard to do daily activities. ?Get worse with physical activity. ?Get worse around bright lights or loud noises. Other symptoms may include: ?Feeling sick to your stomach (nauseous). ?Vomiting. ?Dizziness. ?Being sensitive to bright lights, loud noises, or smells. Before you get a migraine headache, you may get warning signs (an aura). An aura may include: ?Seeing flashing lights or having blind spots. ?Seeing bright spots, halos, or zigzag lines. ?Having tunnel vision or blurred vision. ?Having numbness or a tingling feeling. ?Having trouble talking. ?Having weak muscles. Some people have symptoms after a migraine headache (postdromal phase), such as: ?Tiredness. ?Trouble thinking (concentrating). How is this treated? Taking medicines that: ?Relieve pain. ?Relieve the feeling of being sick to your stomach. ?Prevent migraine headaches. Treatment may also include: ?Having acupuncture. ?Avoiding foods that bring on migraine headaches. ?Learning ways to control your body functions (biofeedback). ?Therapy to help you know and deal with negative thoughts (cognitive behavioral therapy). Follow these instructions at home: Medicines Take sgbo-fwd-thiiukk and prescription medicines only as told by your doctor. Ask your doctor if the medicine prescribed to you: ?Requires you to avoid driving or using heavy machinery. ?Can cause trouble pooping (constipation). You may need to take these steps to prevent or treat trouble pooping: ?Drink enough fluid to keep your pee (urine) pale yellow. ?Take isut-drs-zjvqtwr or prescription medicines. ?Eat foods that are high in fiber. These include beans, whole grains, and fresh fruits and vegetables. ?Limit foods that are high in fat and sugar. These include fried or sweet foods. Lifestyle Do not drink alcohol. Do not use any products that contain nicotine or tobacco, such as cigarettes, e- cigarettes, and chewing tobacco. If you need help quitting, ask your doctor. Get at least 8 hours of sleep every night. Limit and deal with stress. General instructions Keep a journal to find out what may bring on your migraine headaches. For example, write down: ?What you eat and drink. ?How much sleep you get. ?Any change in what you eat or drink. ?Any change in your medicines. If you have a migraine headache: ?Avoid things that make your symptoms worse, such as bright lights. ?It may help to lie down in a dark, quiet room. ?Do not drive or use heavy machinery. ?Ask your doctor what activities are safe for you. Keep all follow-up visits as told by your doctor. This is important. Contact a doctor if: You get a migraine headache that is different or worse than others you have had. You have more than 15 headache days in one month. Get help right away if: Your migraine headache gets very bad. Your migraine headache lasts longer than 72 hours. You have a fever. You have a stiff neck. You have trouble seeing. Your muscles feel weak or like you cannot control them. You start to lose your balance a lot. You start to have trouble walking. You pass out (faint). You have a seizure. Summary A migraine headache is a very strong throbbing pain on one side or both sides of your head. These headaches can also cause other symptoms. This condition may be treated with medicines and changes to your lifestyle. Keep a journal to find out what may bring on your migraine headaches. Contact a doctor if you get a migraine headache that is different or worse than others you have had. Contact your doctor if you have more than 15 headache days in a month. This information is not intended to replace advice given to you by your health care provider. Make sure you discuss any questions you have with your health care provider. Document Released: 04/28/2009 Document Revised: 11/11/2019 Document Reviewed: 09/01/2019 [employer] Patient Education 2019 [employer]. Follow Up Care 11/18/2021 16:06:33 With:GENET SNYDER CNP Address: [address] [place] [address] [address] [place] [address]- When:11/21/2021 [facility]04-18-2022 Evaluation + Plan noteExtracted from: Title:ED Note Author:Stefan WHITNEY, Alena Schneider ate:11/18/21 1. Headache (R51.9: Headache , unspecified) Ordered: diphenhydrAMINE, 25 mg = 1 cap(s), Oral, TID, PRN as needed for nausea/vomiting, X 3 day(s), # 10 cap(s), Refills(s) 0, Pharmacy: [facility], 170, cm, 11/18/21 16:11:00 EDT, Height/Length Dosing, 90, kg, 11/18/21 16:11:00 EDT, Weight Dosing ketorolac, 10 mg = 1 tab(s), Oral, QID, PRN for pain, X 5 day(s), # 20 tab(s), Refills(s) 0, Pharmacy: [facility], 170, cm, 11/18/21 16:11:00 EDT, Height/Length Dosing, 90, kg, 11/18/21 16:11:00 EDT, Weight Dosing metoclopramide, 10 mg = 1 tab(s), Oral, QID, PRN Headache, X 5 day(s), # 20 tab(s), Refills(s) 0, Pharmacy: [facility], 170, cm, 11/18/21 16:11:00 EDT, Height/Length Dosing, 90, kg, 11/18/21 16:11:00 EDT, Weight Dosing 2. Hypertension (I10: Essential (primary) hypertension) Orders: cyclobenzaprine, 10 mg = 1 tab(s), Tab, Oral, Once, Stop date 11/18/21 17:02:00 EDT, STAT, Start date 11/18/21 17:02:00 EDT, 11/18/21 17:02:00 EDT diphenhydrAMINE, 25 mg = 1 cap(s), Cap, Oral, Once, Stop date 11/18/21 16:18:00 EDT, STAT, Start date 11/18/21 16:18:00 EDT, 11/18/21 16:18:00 EDT ketorolac, 30 mg = 1 mL, Injection, IntraMuscular, Once, Stop date 11/18/21 16:17:00 EDT, STAT, Start date 11/18/21 16:17:00 EDT, 11/18/21 16:17:00 EDT metoclopramide, 10 mg = 2 tab(s), Tab, Oral, Once, Stop date 11/18/21 16:17:00 EDT, STAT, Start date 11/18/21 16:17:00 EDT, 11/18/21 16:17:00 EDT U Beta Hcg Qual [facility] Diagnosis Secondary amenorrhea Absence of menstruation Positive urine test documented in this encounter [facility] Phone: evaluation noteNo InformationNoSelect [facility] Other Evaluation note* Diagnosis Onset Date Resolution Status Anxiety acute Depression acute Unable to lose weight [facility] Work Phone: History general Narrative - Reported* Type Description Date Medical History Headache Surgical History C-SECTIONS X2 Hospitalization History SEE SURGICAL HX [facility] [employer] Other Hospital course Narrative No data available for this section [facility]* Instructions* Latonya Hollingsworth RN - 01/30/[address] amador resendez's office with any questions or concerns documented in this encounter[facility]ST[facility] DIS[facility]ARY[facility] Phone: Hospital Discharge instructions No data available for this section [facility] No data available for this section [facility] Reason for visit Narrative* Auth/Cert Specialty Diagnoses / Procedures Referred By Julieta irene Referred To Contact Diagnoses Missed MISSED Procedures NE SURG RX MISSED ABORTN,1ST TRI SUCTION DILATATION AND CURETTAGE (PAT ON ADMIT) Gurpreet العراقي DO [address] [place] [address] [employer] [address] [place] [address] Referral ID Status Reason Start Date Expiration Date Visits Re quested Visits Authorized [id number] 1 1 [employer] Phone: Summary Purpose Family History Relationship Condition Age at Onset Recorded Date/T delaney grandparent Hypertension Unknown High blood cholesterol Unknown Advance Directives Documents on File Type Date Recorded 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 ACP-Advance Directive ACP-Power of Molder Punch Advance Directive Response Recorded Date/ Time Advance Directives No November 04 9:29am Reason for Referral Specialty Diagnoses / Procedures Referred By Julieta irene Referred To Contact Radiology Diagnoses Secondary amenorrhea Positive urine test Procedures US OB TRANSVAGINAL Gurpreet العراقي, [address] [place] [address] Referral ID Status Reason Start Date Expiration Date Visits Re quested Visits Authorized [id number] Open 01/08/2022 01/08/2023 1 1 Specialty Diagnoses / Procedures Referred By Julieta irene Referred To Contact Radiology Diagnoses Secondary amenorrhea Positive urine test Procedures US OB LESS THAN 14 WEEKS SINGLE OR FIRST GESTATION Gurpreet العراقي DO [address] [place] [address] Referral ID Status Reason Start Date Expiration Date V isits Requested Visits Authorized [id number] Pending Review 01/17/2022 01/08/2023 1 1 Chief Complaint and Reason for Visit Chief Complaint mental health - weig ht loss Reason for Visit Anxiety Depression Unable to lose weight Additional Source Comments INFORMATION SOURCE (unrecogn ized section and content) DATE CREATED AUTHOR 01/15/2022 [facility] DATE CREATED AUTHOR AUTHOR'S ORGANIZ ATION 01/23/2022 [facility] DATE CREATED AUTHOR AUTHOR'S ORGANIZ ATION 01/31/2022 [facility] DATE CREATED AUTHOR AUTHOR'S ORGANIZ ATION 03/09/2023 [facility] Reason for Visit (unrecogniz ed section and content) Specialty Diagnoses / Procedures Referred By Contkonstantin t Referred To Contact Radiology Diagnoses Secondary amenorrhea Positive urine test Procedures US OB LESS THAN 14 WEEKS SINGLE OR FIRST GESTATION Gurpreet العراقي DO [address] [place] [address] Referral ID Status Reason Start Date Expiration Date V isits Requested Visits Authorized [id number] Pending Review 01/17/2022 01/08/2023 1 1 Care Teams (unrecognized sec tion and content) Psychology Fellow Relationship Specialty Start Date End Date Genet Snyder APRN - FIELD ASSISTANT [address] [place] [address] PCP - General Nurse Practitioner 11/29/12 Psychology Fellow Relationship Specialty Start Date End Date Genet Snyder APRN - FIELD ASSISTANT [address] [place] [address] PCP - General Nurse Practitioner 11/29/12 Team Status: Active Member Role Status Dates Brigid To APRN PIN TICKET MACHINE OPERATOR-C Primary Care Provider Active Team Status: Inactive Member Role Status Dates Brigid To APRN PIN TICKET MACHINE OPERATORRainaC Primary Care Provider, Attending Provider Active Start: November 05, 2023 End: November 05, 2023 Scheduled Active and Recently Administ ered Medications (unrecognized section and content) Medication Order 01/28/2022 01/29/2022 01/30/2022 ceFAZolin (ANCEF) 2000 mg in dextrose 5 % 100 mL IVPB 2,000 mg, IntraVENous, BEVERAGE HOST TO O.R., 1 dose, On Humera 01/30/22 at 1030, Antimicrobial Indications: Surgical Prophylaxis, Pre-op (day of surgery) 1030 (Due) ketorolac (TORADOL) injection 30 mg (COMPLETED) Ketorolac is contraindicated in patients with advanced renal impairment and in patients at risk of renal failure due to volume depletion. For 65 years of age and older OR weight less than 50 kg, use 15 mg IV every 6 hours; MAX dose: 60 mg/day. Dose greater than 30 mg must be administered via intramuscular route. Do not administer for more than 5 days., 30 mg, IntraVENous, ONCE, 1 dose, On Humera 01/30/22 at 1215, Do not administer for more than 5 days. 1210 (Given - Provid er: Latonya Hollingsworth RN) methylergonovine (METHERGINE) injection 200 mcg (COMPLETED) 200 mcg, IntraMUSCular, ONCE, 1 dose, On Humera 01/30/22 at 1215 1233 (Given - Provid er: Latonya Hollingsworth RN) Continuous Medication Order 01/28/2022 01/29/2022 01/30/2022 lactated ringers infusion IntraVENous, at 100 mL/hr, CONTINUOUS, Starting on Humera 01/30/22 at 1115, Pre-op (day of surgery) 1100 ([facility] ider: Latonya Hollingsworth RN) Goals (unrecognized section and content) Goals may be documented in a n alternate section FOR RECORDS PERTAINING TO PATIENTS WHO ARE OR HAVE BEEN ENROLLED IN A CHEMICAL DEPENDENCY/SUBSTANCEABUSE PROGRAM, SOME INFORMATION MAY BE OMITTED. This clinical summary was aggregated from multiple sources. Caution should be exercised in using it in the provision of clinical care. This summary normalizes information from multiple sources, and as a consequence, information in this document may materially change the coding, format and clinical context of patient data. In addition, data may be omitted in some cases. CLINICAL DECISIONS SHOULD BE BASED ON THE PRIMARY CLINICAL RECORDS. [employer] provides no warranty or guarantee of the accuracy or completeness of information in this document.
[2023-12-27 12:08] VITALS: BP 134/83; PULSE 70; O2SAT 98
== END 2023-12-27 12:10 | disposition home or self-care (01) ==
PROVIDERS: Emergency Provider Emergency Medicine; PCP Nurse Practitioner Family
DX: L25.9 Unspecified contact dermatitis, unspecified cause (principal)
CPT/HCPCS: 99283